=== PATIENT | female | born 1945 | race Caucasian/White ===

== ENCOUNTER 2017-02-22 14:05 | Emergency (ER) | payer MEDICARE, OTHER ==
[2017-02-22] MEDS ORDERED: DUONEB 0.5-3 MG/3 ml Neb IH ONE ×2 (14:26→14:39)
[2017-02-22] MEDS ORDERED: solu-MEDROL 125 MG IV ONE (14:26)
[2017-02-22 14:37] LABS: BASOPHIL % 0.3 % (0.0-0.4); Eosinophil % 1.9 % (0.00-5.0); Granulocytes % 70.7 % (36.0-66.0); Lymphocytes % 19.6 % (24.0-44.0); Mean Cell Volume 81.6 fl (78-100); Mean Platelet Volume 10.3 fl (6-9.5); Monocytes % 7.5 % (0.0-12.0); Platelet Count 280 K/mm3 (150-450); Red Blood Count 3.92 M/mm3 (4.1-5.4); Red Cell Distribution Width 15.7 % (11.5-14.0); White Blood Count 8.6 K/mm3 (4.0-10.5)
--- NOTE | 2017-02-22 14:37 | ERPHSYRPT ---
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 and on been on 2 rounds of antibotics and today was last day of steriod. Triage Nursing Assessment: pt alert, resp easy, chest clear. skin w/d pink. no edema noted, has tooth pulled on sunday Physician History: mild to mod shortness of breath for 3 weeks off and on, no fever, no injury, hx asthma, hx recent dental procedure, speech fluent, no stridor, no chest pain Timing/Duration: week(s) Activities at Onset: rest Severity of Dyspnea-Max: moderate Severity of Dyspnea-Current: mild Possible Cause: frequent episodes Allergies/Adverse Reactions: Penicillins Allergy (Verified 02/22/17 14:25) Home Medications: Albuterol 2.5 mg/3 ml Neb [Proventil 2.5 mg/3 ml Neb] 2.5 mg QID 02/22/17 [History] Biotin 1 mg DAILY 02/22/17 [History] Cholecalciferol (Vitamin D3) [Vitamin D3] 10,000 unit DAILY 02/22/17 [History] Estrogens, Conjugated [Premarin] 1.25 mg WEEKLY 02/22/17 [History] Insulin Glargine,Hum.rec.anlog [Tay Robledo] 40 units DAILY 02/22/17 [ History] Insulin Lispro [Humalog] 1 unit TID 02/22/17 [History] Magnesium Chloride 64 mg [Slow-Mag 64 MG] 1 tab DAILY 02/22/17 [History] Metformin HCl 500 mg [Glucophage 500 MG] 500 mg BID 02/22/17 [History] Metoclopramide HCl 10 mg [Reglan 10 MG] 10 mg QID 02/22/17 [History] Pantoprazole Sodium [Protonix] 40 mg DAILY 02/22/17 [History] Ramipril [Altace] 20 mg DAILY 02/22/17 [History] Hx Influenza Vaccination/Date Given: No Hx Pneumococcal Vaccination/Date Given: Yes - Review of Systems Constitutional: No Fever Eyes: No Symptoms Ears, Nose, & Throat: No Hoarse, No Stridor Respiratory: Wheezing Cardiac: Other (palpitations) Abdominal/Gastrointestinal: No Symptoms Musculoskeletal: No Symptoms Skin: No Symptoms, Skin Lesions Neurological: No Symptoms Psychological: No Symptoms - Past Medical History Neurological History: No Pertinent History Cardiac History: Hypertension Respiratory History: Other Endocrine Medical History: Diabetes Type II, Hypothyroidism Musculoskeletal History: Osteoarthritis, Rheumatoid Arthritis Other Medical History: seasonal allergies, RA - Past Surgical History Past Surgical History: No - Social History Smoking Status: Never smoker Exposure to second hand smoke: No Drug Use: none Patient Lives Alone: No - Female History Hx Last Menstrual Period: post - Nursing Vital Signs Nursing Vital Signs: Initial Vital Signs Temperature 97.0 F 02/22/17 14:13 Pulse Rate 95 H 02/22/17 14:13 Respiratory Rate 18 02/22/17 14:13 Blood Pressure 155/74 02/22/17 14:13 O2 Sat by Pulse Oximetry 96 02/22/17 14:13 Pain Scale Pain Intensity 0 - Physical Exam General Appearance: no apparent distress Eye Exam: PERRL/EOMI Ears, Nose, Throat Exam: No pharyngeal erythema Neck Exam: normal inspection, No meningismus Respiratory Exam: wheezing, No respiratory distress Cardiovascular/Chest Exam: irregular Abdominal/Gastrointestinal Exam: soft, No tenderness Extremity Exam: non-tender, normal range of motion Neurologic Exam: alert, oriented x 3, cooperative, normal mood/affect Skin Exam: normal color, warm, dry SpO2 Interpretation: normal SpO2: 98 - Course Nursing assessment & vital signs reviewed: Yes EKG Interpreted by Me: RATE (100, ventricular bigeminy, no stemi, similar to 2015 [place] waveforms) - Radiology Exams Chest X-ray Interpretation: Discussed w/ radiologist (no gross infil or failure) Ordered Tests: Active Orders 24 hr Category Date Time Status EKG-ER Only STAT Care 02/22/17 14:26 Active CHEST 1 VIEW (PORTABLE) Stat Exams 02/22/17 14:27 Completed CBC W DIFF Stat Lab 02/22/17 14:25 Completed CMP Stat Lab 02/22/17 14:25 Completed D-DIMER QUANTITATION Stat Lab 02/22/17 14:25 Completed NT PRO BNP Stat Lab 02/22/17 14:25 Completed PROTIME WITH INR Stat Lab 02/22/17 14:25 Completed TROPONIN Q3H Lab 02/22/17 14:25 Completed TROPONIN Q3H Lab 02/22/17 17:30 Ordered TROPONIN Q3H Lab 02/22/17 20:30 Ordered TROPONIN Q3H Lab 02/22/17 23:30 Ordered TROPONIN Q3H Lab 02/23/17 02:30 Ordered Respiratory Nebulizer STAT RT 02/22/17 14:30 Completed Medication Summary Discontinued Medications Generic Name Dose Route Start Last Admin Trade Name Freq PRN Reason Stop Dose Admin Albuterol/Ipratropium 3 ml 02/22/17 14:26 02/22/17 14:40 Duoneb 0.5-3 Mg/3 Ml Neb IH 02/22/17 14:27 3 ml STAT ONE Administration Albuterol/Ipratropium Confirm 02/22/17 14:39 Duoneb 0.5-3 Mg/3 Ml Neb Administered 02/22/17 14:40 Dose 3 ml IH .STK-MED ONE Aspirin 324 mg 02/22/17 16:16 Baby Aspirin 81 Mg Chew PO 02/22/17 16:17 STAT ONE Methylprednisolone Sodium Succinate 125 mg 02/22/17 14:26 02/22/17 15:08 Solu-Medrol 125 Mg IV 02/22/17 14:27 125 mg STAT ONE Administration Methylprednisolone Sodium Succinate Confirm 02/22/17 15:07 Solu-Medrol 125 Mg Administered 02/22/17 15:08 Dose 125 mg .ROUTE .STK-MED ONE Lab/Rad Data: Laboratory Result Diagrams 02/22/17 14:25 02/22/17 14:25 Laboratory Results 02/22/17 02/22/17 02/22/17 Range/Units 14:25 14:25 14:25 WBC (4.0-10.5) K/mm3 RBC (4.1-5.4) M/mm3 Hgb (12.0-16.0) gm/dl Hct (35-47) % MCV (78-100) fl MCH (26-32) pg MCHC (32-36) g/dl RDW (11.5-14.0) % Plt Count (150-450) K/mm3 MPV (6-9.5) fl Gran % (36.0-66.0) % Lymphocytes % (24.0-44.0) % Monocytes % (0.0-12.0) % Eosinophils % (0.00-5.0) % Basophils % (0.0-0.4) % Basophils # (0-0.4) INR 1.04 (0.8-3.0) D-Dimer 384 (0-500) ng/mL Sodium 142 (136-145) mEq/L Potassium 3.6 (3.5-5.1) mEq/L Chloride 103 (98-107) mEq/L Carbon Dioxide 26.5 (21-32) mEq/L Anion Gap 15.8 H (5-15) MEQ/L BUN 13 (9-20) mg/dL Creatinine 1.08 (0.55-1.30) mg/dl Estimated GFR 53 ML/MIN Glucose 94 (70-110) MG/DL Calcium 9.2 (8.5-10.1) mg/dL Total Bilirubin 0.40 (0.2-1.0) mg/dL AST 12 L (15-37) U/L ALT 33 (12-78) U/L Alkaline Phosphatase 62 (46-116) U/L Troponin I 0.073 H* (0.000-0.056) ng/ml NT-Pro-B Natriuret Pep 982 H (0-125) pg/ml Serum Total Protein 7.6 (6.4-8.2) gm/dL Albumin 4.0 (3.4-5.0) g/dL 02/22/17 Range/Units 14:25 WBC 8.6 (4.0-10.5) K/mm3 RBC 3.92 L (4.1-5.4) M/mm3 Hgb 9.4 L (12.0-16.0) gm/dl Hct 32.0 L (35-47) % MCV 81.6 (78-100) fl MCH 23.9 L (26-32) pg MCHC 29.4 L (32-36) g/dl RDW 15.7 H (11.5-14.0) % Plt Count 280 (150-450) K/mm3 MPV 10.3 H (6-9.5) fl Gran % 70.7 H (36.0-66.0) % Lymphocytes % 19.6 L (24.0-44.0) % Monocytes % 7.5 (0.0-12.0) % Eosinophils % 1.9 (0.00-5.0) % Basophils % 0.3 (0.0-0.4) % Basophils # 0.03 (0-0.4) INR (0.8-3.0) D-Dimer (0-500) ng/mL Sodium (136-145) mEq/L Potassium (3.5-5.1) mEq/L Chloride (98-107) mEq/L Carbon Dioxide (21-32) mEq/L Anion Gap (5-15) MEQ/L BUN (9-20) mg/dL Creatinine (0.55-1.30) mg/dl Estimated GFR ML/MIN Glucose (70-110) MG/DL Calcium (8.5-10.1) mg/dL Total Bilirubin (0.2-1.0) mg/dL AST (15-37) U/L ALT (12-78) U/L Alkaline Phosphatase (46-116) U/L Troponin I (0.000-0.056) ng/ml NT-Pro-B Natriuret Pep (0-125) pg/ml Serum Total Protein (6.4-8.2) gm/dL Albumin (3.4-5.0) g/dL - Progress Progress: improved Air Movement: good Discussed with : Other (Kezia Lubin and Nathaniel accept transfer to [facility] room 328) - Departure Time of Disposition: 16:06 Departure Disposition: Transfer Clinical Impression: Bigeminal rhythm, Elevated troponin COPD (chronic obstructive pulmonary disease) Qualifiers: COPD type: unspecified COPD Qualified Code(s): J44.9 - Chronic obstructive pulmonary disease, unspecified Condition: Stable Critical Care Time: No Referrals: PERLA HOPSON NP [NON-STAFF PHY W/O PRIVILEGES] - Instructions: Chronic Obstructive Pulmonary Disease
[2017-02-22 14:40] LABS: Mean Corpuscular Hemoglobin 23.9 pg (26-32)
[2017-02-22 14:49] LABS: INR 1.04 (0.8-3.0); PROTIME 11.6 SECONDS (9.95-12.35)
[2017-02-22] MEDS ORDERED: solu-MEDROL 125 MG ONE (15:07)
[2017-02-22 15:14] LABS: ANION GAP 15.8 MEQ/L (5-15); BILIRUBIN,TOTAL 0.4 mg/dL (0.2-1.0); Carbon Dioxide 26.5 mEq/L (21-32); Potassium 3.6 mEq/L (3.5-5.1); Total Protein 7.6 gm/dL (6.4-8.2)
--- NOTE | 2017-02-22 15:25 | XRAY ---
Exam: AP upright portable chest film from 1442 hrs. on 02/22/2017. Comparison: Two-view chest from 02/12/2017. Indication: Shortness of breath. Findings: The patient is rotated slightly to the right. EKG leads are seen in place. The heart size appears within normal limits for this AP portable technique. No significant vascular congestion or pleural effusion is seen. No pneumothorax is evident. No definite air space infiltrates are seen. Some costochondral calcification is seen adjacent to the anterior margin of the lower ribs, particularly on the right. No acute osseous process is seen. Impression: 1. I see no findings of acute heart failure or pulmonary edema. No infiltrates to suggest focal pneumonia are seen. 2. No other acute cardiopulmonary process is seen.
[2017-02-22] MEDS ORDERED: BABY ASPIRIN 81 MG CHEW PO ONE (16:16)
[2017-02-22] MEDS ORDERED: BABY ASPIRIN 81 MG CHEW ONE (16:37)
[2017-02-22 17:43] VITALS: BP 148/72; PULSE 74; O2SAT 97
== END 2017-02-22 17:43 | disposition short-term general hospital (02) ==
LOC: ED 14:05
DX: J44.9 Chronic obstructive pulmonary disease, unspecified (principal); R00.8 Other abnormalities of heart beat; R79.89 Other specified abnormal findings of blood chemistry
CPT/HCPCS: 36415; 71010; 80053; 83880; 84484; 85025; 85379; 85610; 93005; 94640; 96374; 99284; J2930; A9270-GY

== ENCOUNTER 2017-03-24 22:28 | Emergency (ER) | payer MEDICARE, OTHER ==
--- NOTE | 2017-03-24 22:37 | ERPHSYRPT ---
- History of Present Illness Time Seen by Provider: 03/24/17 22:31 Source: patient Exam Limitations: no limitations Physician History: FOR THE PAST 22.5 HOURS PT HAS HAD SHORTNESS OF AIR, DIAPHORESIS AND HEADACHE. PT DENIES CHEST PAIN, FEVER, VOMITING. PT STATES SHE HAD AN EGD ABOUT 1 MONTH AGO WHICH SHOWED SHE HAD A FUNGUS IN HER STOMACH. PT HAS ALSO HAD URINARY URGENCY FOR THE PAST MONTH. Allergies/Adverse Reactions: Penicillins Allergy (Verified 02/22/17 14:25) Home Medications: Albuterol 2.5 mg/3 ml Neb [Proventil 2.5 mg/3 ml Neb] 2.5 mg QID 02/22/17 [History] Biotin 1 mg DAILY 02/22/17 [History] Cholecalciferol (Vitamin D3) [Vitamin D3] 10,000 unit DAILY 02/22/17 [History] Estrogens, Conjugated [Premarin] 1.25 mg WEEKLY 02/22/17 [History] Insulin Glargine,Hum.rec.anlog [Toujeo Solostar] 40 units DAILY 02/22/17 [ History] Insulin Lispro [Humalog] 1 unit TID 02/22/17 [History] Magnesium Chloride 64 mg [Slow-Mag 64 MG] 1 tab DAILY 02/22/17 [History] Metformin HCl 500 mg [Glucophage 500 MG] 500 mg BID 02/22/17 [History] Metoclopramide HCl 10 mg [Reglan 10 MG] 10 mg QID 02/22/17 [History] Pantoprazole Sodium [Protonix] 40 mg DAILY 02/22/17 [History] Carvedilol 3.125 mg [Coreg 3.125 MG] 3.125 mg PO BID 03/03/17 [History] Hx Influenza Vaccination/Date Given: No Hx Pneumococcal Vaccination/Date Given: Yes - Review of Systems Respiratory: Dyspnea Cardiac: No Chest Pain Abdominal/Gastrointestinal: No Vomiting Genitourinary Symptoms: Urgency Neurological: Headache Endocrine: Excessive Sweating All Other Systems: Reviewed and Negative - Past Medical History Pertinent Past Medical History: Yes Neurological History: No Pertinent History Cardiac History: Hypertension Respiratory History: Other Endocrine Medical History: Diabetes Type II, Hypothyroidism Musculoskeletal History: Osteoarthritis, Rheumatoid Arthritis Other Medical History: seasonal allergies, RA - Past Surgical History Past Surgical History: Yes Gastrointestinal: Cholecystectomy Female Surgical History: Hysterectomy - Social History Smoking Status: Never smoker Exposure to second hand smoke: No Drug Use: none Patient Lives Alone: No - Nursing Vital Signs Nursing Vital Signs: Initial Vital Signs Temperature 98.5 F 03/24/17 22:45 Pulse Rate 80 03/24/17 22:45 Respiratory Rate 20 03/24/17 22:45 Blood Pressure 140/74 03/24/17 22:45 O2 Sat by Pulse Oximetry 99 03/24/17 22:45 Pain Scale Pain Intensity 0 - Physical Exam General Appearance: alert Eye Exam: PERRL/EOMI Ears, Nose, Throat Exam: moist mucous membranes Neck Exam: normal inspection Respiratory Exam: lungs clear Cardiovascular Exam: normal heart sounds Gastrointestinal/Abdomen Exam: soft, normal bowel sounds Back Exam: normal range of motion Extremity Exam: normal inspection Neurologic Exam: alert, cooperative Skin Exam: warm, dry - Course Nursing assessment & vital signs reviewed: Yes EKG Interpreted by Me: RATE (85), Sinus Rhythm, NORMAL AXIS, NORMAL INTERVALS - Radiology Exams Chest X-ray Interpretation: Interpreted by me (MILD CONGESTIVE CHANGES) Ordered Tests: Active Orders 24 hr Category Date Time Status Calibration Technician STAT Care 03/24/17 22:39 Active EKG-ER Only STAT Care 03/24/17 22:37 Active Oxygen-ED Only NASAL CANNULA 2 lpm Care 03/24/17 22:37 Active Pulse Oximetry (ED) STAT Care 03/24/17 22:37 Active CHEST 2 VIEWS (PA AND LAT) Stat Exams 03/24/17 22:38 Taken AMYLASE Stat Lab 03/24/17 22:40 Completed ARTERIAL BLOOD GASES Urgent Lab 03/24/17 23:06 Completed CBC W DIFF Stat Lab 03/24/17 22:40 Completed CMP Stat Lab 03/24/17 22:40 Completed LIPASE Stat Lab 03/24/17 22:40 Completed MAGNESIUM Stat Lab 03/24/17 22:40 Completed NT PRO BNP Stat Lab 03/24/17 22:40 Completed PROTIME WITH INR Stat Lab 03/24/17 22:40 Completed PTT Stat Lab 03/24/17 22:40 Completed TROPONIN Q3H Lab 03/24/17 22:40 Completed TROPONIN Q3H Lab 03/25/17 01:45 Ordered TROPONIN Q3H Lab 03/25/17 04:45 Ordered TROPONIN Q3H Lab 03/25/17 07:45 Ordered TROPONIN Q3H Lab 03/25/17 10:45 Ordered UA W/RFX UR CULTURE Stat Lab 03/24/17 23:40 Completed Urine Triage Profile Stat Lab 03/24/17 23:40 Completed Medication Summary Generic Name Dose Route Start Last Admin Trade Name Hakeem PRN Reason Stop Dose Admin Sodium Chloride 1,000 mls @ 100 mls/hr 03/24/17 22:45 03/24/17 22:55 Sodium Chloride 0.9% 1000 Ml IV 04/23/17 22:44 100 mls/hr .Q10H KIMMY Administration Discontinued Medications Generic Name Dose Route Start Last Admin Trade Name Richieq PRN Reason Stop Dose Admin Al Hydrox/Mg Hydrox/Simethicone Confirm 03/24/17 23:00 Maalox Es 30 Ml Unit Dose Administered 03/24/17 23:01 Dose 30 ml .ROUTE .STK-MED ONE Furosemide 20 mg 03/24/17 23:52 03/25/17 00:11 Lasix 40 Mg/4 Ml IV 03/24/17 23:53 20 mg STAT ONE Administration Furosemide Confirm 03/25/17 00:11 Lasix 40 Mg/4 Ml Administered 03/25/17 00:12 Dose 40 mg .ROUTE .STK-MED ONE Lidocaine HCl Confirm 03/24/17 23:00 Xylocaine Hcl Viscous * Administered 03/24/17 23:01 Dose 1 ml .ROUTE .STK-MED ONE Magnesium Hydroxide 45 ml 03/24/17 22:57 03/24/17 23:01 Gi Cocktail 45 Ml (Maalox/Lidocaine) PO 03/24/17 22:58 45 ml STAT ONE Administration Lab/Rad Data: Laboratory Result Diagrams 03/24/17 22:40 03/24/17 22:40 Laboratory Results 03/24/17 03/24/17 03/24/17 Range/Units 23:40 23:40 23:06 WBC (4.0-10.5) K/mm3 RBC (4.1-5.4) M/mm3 Hgb (12.0-16.0) gm/dl Hct (35-47) % MCV (78-100) fl MCH (26-32) pg MCHC (32-36) g/dl RDW (11.5-14.0) % Plt Count (150-450) K/mm3 MPV (6-9.5) fl Gran % (36.0-66.0) % Lymphocytes % (24.0-44.0) % Monocytes % (0.0-12.0) % Eosinophils % (0.00-5.0) % Basophils % (0.0-0.4) % Basophils # (0-0.4) INR (0.8-3.0) APTT (25.3-37.0) SECONDS Puncture Site RIGHT RADIAL pCO2 34 L (35-45) mmHg pO2 110 H (75-100) mmHg Base Excess -0.8 (-2.0-2.0) O2 Saturation 94.7 (94-100) g/dF ABG pH 7.44 (7.35-7.45) ABG HCO3 23.1 (22-28) ABG O2 Sat (Measured) 98.4 (95-100) % Mateo Test YES A-a Gradient 47 a/A Ratio 0.70 Hemoglobin 8.6 Carboxyhemoglobin 2.1 (0.0-6.9) % THgb Methemoglobin 1.7 H (1.4-1.5) % Temperature 37.0 C POC O2 Flow Rate 28 % Sodium (136-145) mEq/L Potassium 3.5 (3.5-5.1) mEq/L Chloride (98-107) mEq/L Carbon Dioxide (21-32) mEq/L Anion Gap (5-15) MEQ/L BUN (9-20) mg/dL Creatinine (0.55-1.30) mg/dl Estimated GFR ML/MIN Glucose (70-110) MG/DL Calcium (8.5-10.1) mg/dL Magnesium (1.8-2.4) mg/dL Total Bilirubin (0.2-1.0) mg/dL AST (15-37) U/L ALT (12-78) U/L Alkaline Phosphatase (46-116) U/L Troponin I (0.000-0.056) ng/ml NT-Pro-B Natriuret Pep (0-125) pg/ml Serum Total Protein (6.4-8.2) gm/dL Albumin (3.4-5.0) g/dL Amylase (25-115) U/L Lipase (73-393) U/L Ur Collection Type CLEAN CATCH Urine Color YELLOW (YELLOW) Urine Appearance CLEAR (CLEAR) Urine pH 5.0 (5-6) Ur Specific [place] 1.025 (1.005-1.025) Urine Protein NEGATIVE (Negative) Urine Ketones NEGATIVE (NEGATIVE) Urine Blood NEGATIVE (0-5) Chriss/ul Urine Nitrite NEGATIVE (NEGATIVE) Urine Bilirubin NEGATIVE (NEGATIVE) Urine Urobilinogen NORMAL (0-1) mg/dL Ur Leukocyte Esterase NEGATIVE (NEGATIVE) Urine Culture Reflexed NO (NO) Urine Glucose NEGATIVE (NEGATIVE) mg/dL Urine Opiates Level POS. (NEGATIVE) Ur Methadone NEG. (NEGATIVE) Urine Barbiturates NEG. (NEGATIVE) Ur Phencyclidine (PCP) NEG. (NEGATIVE) Urine Amphetamine NEG. (NEGATIVE) U Benzodiazepine Level NEG. (NEGATIVE) Urine Cocaine NEG. (NEGATIVE) Urine Marijuana (THC) NEG. (NEGATIVE) Specimen Received 03/24/17 [id number] 03/24/17 03/24/17 03/24/17 Range/Units 22:40 22:40 22:40 WBC (4.0-10.5) K/mm3 RBC (4.1-5.4) M/mm3 Hgb (12.0-16.0) gm/dl Hct (35-47) % MCV (78-100) fl MCH (26-32) pg MCHC (32-36) g/dl RDW (11.5-14.0) % Plt Count (150-450) K/mm3 MPV (6-9.5) fl Gran % (36.0-66.0) % Lymphocytes % (24.0-44.0) % Monocytes % (0.0-12.0) % Eosinophils % (0.00-5.0) % Basophils % (0.0-0.4) % Basophils # (0-0.4) INR 1.10 (0.8-3.0) APTT 31.1 (25.3-37.0) SECONDS Puncture Site pCO2 (35-45) mmHg pO2 (75-100) mmHg Base Excess (-2.0-2.0) O2 Saturation (94-100) g/dF ABG pH (7.35-7.45) ABG HCO3 (22-28) ABG O2 Sat (Measured) (95-100) % Mateo Test A-a Gradient a/A Ratio Hemoglobin Carboxyhemoglobin (0.0-6.9) % THgb Methemoglobin (1.4-1.5) % Temperature C POC O2 Flow Rate % Sodium 141 (136-145) mEq/L Potassium 3.7 (3.5-5.1) mEq/L Chloride 105 (98-107) mEq/L Carbon Dioxide 23.2 (21-32) mEq/L Anion Gap 16.2 H (5-15) MEQ/L BUN 12 (9-20) mg/dL Creatinine 1.01 (0.55-1.30) mg/dl Estimated GFR 58 ML/MIN Glucose 147 H (70-110) MG/DL Calcium 8.9 (8.5-10.1) mg/dL Magnesium 1.8 (1.8-2.4) mg/dL Total Bilirubin 0.50 (0.2-1.0) mg/dL AST 20 (15-37) U/L ALT 22 (12-78) U/L Alkaline Phosphatase 66 (46-116) U/L Troponin I 0.052 (0.000-0.056) ng/ml NT-Pro-B Natriuret Pep 1401 H (0-125) pg/ml Serum Total Protein 7.2 (6.4-8.2) gm/dL Albumin 3.7 (3.4-5.0) g/dL Amylase 43 (25-115) U/L Lipase 264 (73-393) U/L Ur Collection Type Urine Color (YELLOW) Urine Appearance (CLEAR) Urine pH (5-6) Ur Specific [place] (1.005-1.025) Urine Protein (Negative) Urine Ketones (NEGATIVE) Urine Blood (0-5) Chriss/ul Urine Nitrite (NEGATIVE) Urine Bilirubin (NEGATIVE) Urine Urobilinogen (0-1) mg/dL Ur Leukocyte Esterase (NEGATIVE) Urine Culture Reflexed (NO) Urine Glucose (NEGATIVE) mg/dL Urine Opiates Level (NEGATIVE) Ur Methadone (NEGATIVE) Urine Barbiturates (NEGATIVE) Ur Phencyclidine (PCP) (NEGATIVE) Urine Amphetamine (NEGATIVE) U Benzodiazepine Level (NEGATIVE) Urine Cocaine (NEGATIVE) Urine Marijuana (THC) (NEGATIVE) Specimen Received 03/24/17 Range/Units 22:40 WBC 8.3 (4.0-10.5) K/mm3 RBC 3.83 L (4.1-5.4) M/mm3 Hgb 8.9 L (12.0-16.0) gm/dl Hct 30.4 L (35-47) % MCV 79.4 (78-100) fl MCH 23.2 L (26-32) pg MCHC 29.3 L (32-36) g/dl RDW 16.1 H (11.5-14.0) % Plt Count 279 (150-450) K/mm3 MPV 9.6 H (6-9.5) fl Gran % 68.9 H (36.0-66.0) % Lymphocytes % 21.2 L (24.0-44.0) % Monocytes % 7.3 (0.0-12.0) % Eosinophils % 2.2 (0.00-5.0) % Basophils % 0.4 (0.0-0.4) % Basophils # 0.03 (0-0.4) INR (0.8-3.0) APTT (25.3-37.0) SECONDS Puncture Site pCO2 (35-45) mmHg pO2 (75-100) mmHg Base Excess (-2.0-2.0) O2 Saturation (94-100) g/dF ABG pH (7.35-7.45) ABG HCO3 (22-28) ABG O2 Sat (Measured) (95-100) % Mateo Test A-a Gradient a/A Ratio Hemoglobin Carboxyhemoglobin (0.0-6.9) % THgb Methemoglobin (1.4-1.5) % Temperature C POC O2 Flow Rate % Sodium (136-145) mEq/L Potassium (3.5-5.1) mEq/L Chloride (98-107) mEq/L Carbon Dioxide (21-32) mEq/L Anion Gap (5-15) MEQ/L BUN (9-20) mg/dL Creatinine (0.55-1.30) mg/dl Estimated GFR ML/MIN Glucose (70-110) MG/DL Calcium (8.5-10.1) mg/dL Magnesium (1.8-2.4) mg/dL Total Bilirubin (0.2-1.0) mg/dL AST (15-37) U/L ALT (12-78) U/L Alkaline Phosphatase (46-116) U/L Troponin I (0.000-0.056) ng/ml NT-Pro-B Natriuret Pep (0-125) pg/ml Serum Total Protein (6.4-8.2) gm/dL Albumin (3.4-5.0) g/dL Amylase (25-115) U/L Lipase (73-393) U/L Ur Collection Type Urine Color (YELLOW) Urine Appearance (CLEAR) Urine pH (5-6) Ur Specific [place] (1.005-1.025) Urine Protein (Negative) Urine Ketones (NEGATIVE) Urine Blood (0-5) Chriss/ul Urine Nitrite (NEGATIVE) Urine Bilirubin (NEGATIVE) Urine Urobilinogen (0-1) mg/dL Ur Leukocyte Esterase (NEGATIVE) Urine Culture Reflexed (NO) Urine Glucose (NEGATIVE) mg/dL Urine Opiates Level (NEGATIVE) Ur Methadone (NEGATIVE) Urine Barbiturates (NEGATIVE) Ur Phencyclidine (PCP) (NEGATIVE) Urine Amphetamine (NEGATIVE) U Benzodiazepine Level (NEGATIVE) Urine Cocaine (NEGATIVE) Urine Marijuana (THC) (NEGATIVE) Specimen Received - Progress Discussed with Dr.: Other (SPOKE WITH DR REVELES(COVERING FOR DR LAKHANI)([id number]) WHO ACCEPTED PT FOR TRANSFER TO [facility] VIA AMBULANCE A DIRECT ADMISSION. SPOKE WITH DR ACUNA(ER DR)([id number]) WHO ACCEPTED PT FOR TRANSFER TO [facility] ER.) - Departure Time of Disposition: 01:01 Departure Disposition: Transfer ([facility]) Clinical Impression: DYSPNEA, CHF, ELEVATING TROPONIN I, ANEMIA, HTN Condition: Stable Critical Care Time: No Referrals: JENNIFER LAKHANI MD [Primary Care Provider] -
[2017-03-24] MEDS ORDERED: Sodium Chloride 0.9% 1000 ML 1,000 ML IV SCH (22:45)
[2017-03-24 22:50] LABS: BASOPHIL % 0.4 % (0.0-0.4); Eosinophil % 2.2 % (0.00-5.0); Granulocytes % 68.9 % (36.0-66.0); Lymphocytes % 21.2 % (24.0-44.0); Mean Cell Volume 79.4 fl (78-100); Mean Corpuscular Hemoglobin 23.2 pg (26-32); Mean Platelet Volume 9.6 fl (6-9.5); Monocytes % 7.3 % (0.0-12.0); Platelet Count 279 K/mm3 (150-450); Red Blood Count 3.83 M/mm3 (4.1-5.4); Red Cell Distribution Width 16.1 % (11.5-14.0); White Blood Count 8.3 K/mm3 (4.0-10.5)
[2017-03-24] MEDS ORDERED: Sodium Chloride 0.9% 1000 ML 1,000 ML ONE (22:54)
[2017-03-24] MEDS ORDERED: GI COCKTAIL 45 ML (Maalox/Lidocaine) PO ONE (22:57)
[2017-03-24] MEDS ORDERED: MAALOX ES 30 ML UNIT DOSE ONE (23:00)
[2017-03-24] MEDS ORDERED: XYLOCAINE HCl Viscous ONE (23:00)
[2017-03-24 23:03] LABS: INR 1.1 (0.8-3.0); PROTIME 12.2 SECONDS (9.95-12.35)
[2017-03-24 23:05] LABS: PTT 31.1 SECONDS (25.3-37.0)
[2017-03-24 23:14] LABS: A-aADO2 47; ARTERIAL BLD GAS O2 SATURATION 98.4 % (95-100); ARTERIAL BLOOD GAS BASE EXCESS -0.8 (-2.0-2.0); ARTERIAL BLOOD GAS FIO2 28 %; ARTERIAL BLOOD GAS PO2 110 mmHg (75-100); ARTERIAL BLOOD GAS pH 7.44 (7.35-7.45)
[2017-03-24 23:15] LABS: ALLEN TEST OK? YES
[2017-03-24 23:19] LABS: ALBUMIN 3.7 g/dL (3.4-5.0); ANION GAP 16.2 MEQ/L (5-15); BILIRUBIN,TOTAL 0.5 mg/dL (0.2-1.0); Carbon Dioxide 23.2 mEq/L (21-32); MAGNESIUM 1.8 mg/dL (1.8-2.4); Potassium 3.7 mEq/L (3.5-5.1); Total Protein 7.2 gm/dL (6.4-8.2)
[2017-03-24] MEDS ORDERED: Lasix 40 MG/4 ML IV ONE (23:52)
[2017-03-25 00:05] LABS: ADD URINE CULTURE? NO (NO); Bilirubin NEGATIVE (NEGATIVE); Blood NEGATIVE Ery/ul (0-5); COMPLETE URINE MICROSCOPIC? NO; Collection Type CLEAN CATCH; Glucose NEGATIVE (NEGATIVE); Leukocyte Esterase NEGATIVE (NEGATIVE)
[2017-03-25] MEDS ORDERED: Lasix 40 MG/4 ML ONE (00:11)
[2017-03-25 02:00] VITALS: BP 137/59; PULSE 86; O2SAT 99
--- NOTE | 2017-03-25 08:11 | XRAY ---
Indication: Short of breath. Comparison: March 03, 2017. PA/lateral chest demonstrates new mild interstitial edema and tiny bibasilar effusions. No focal infiltrate or consolidation. Heart is not enlarged.
== END 2017-03-25 02:00 | disposition short-term general hospital (02) ==
LOC: ED 22:28
DX: R06.00 Dyspnea, unspecified (principal); I50.9 Heart failure, unspecified; R79.89 Other specified abnormal findings of blood chemistry; D64.9 Anemia, unspecified; I10 Essential (primary) hypertension; R06.02 Shortness of breath; R61 Generalized hyperhidrosis; R51 Headache; E11.9 Type 2 diabetes mellitus without complications; E03.9 Hypothyroidism, unspecified; Z79.899 Other long term (current) drug therapy; Z79.4 Long term (current) use of insulin; Z79.84 Long term (current) use of oral hypoglycemic drugs
CPT/HCPCS: 36000; 36415; 36600; 71020; 80053; 80307; 81002; 82150; 82375; 82803; 82962; 83690; 83735; 83880; 84484; 85025; 85610; 85730; 93005; 93041; 96360; 96374; 99285; J1940; A9270-GY

== ENCOUNTER 2019-02-06 15:51 | Inpatient (IN) | payer MEDICARE, OTHER ==
[2019-02-06] MEDS ORDERED: celeBREX 100 MG PO PRN (17:20)
[2019-02-06] MEDS ORDERED: NON-FORMULARY ITEM (Semaglutide [Ozempic] 1 MG) SQ SCH (17:30)
[2019-02-06] MEDS ORDERED: MEDICATION INTERVENTION MC SCH ×3 (17:45→18:15)
[2019-02-06 17:52] LABS: ANION GAP 16.7 MEQ/L (5-15); Calcium 8.9 mg/dL (8.4-10.2); Creatinine 1 1.31 mg/dL (0.52-1.04)
[2019-02-06] MEDS: NovoLOG Insulin SQ SCH (19:05)
[2019-02-06] MEDS: Colace 100 MG PO SCH (21:46)
[2019-02-06] MEDS: ZOCOR 20MG PO SCH (21:46)
[2019-02-06] MEDS: Klor Con 10 MEQ PO SCH (21:47)
[2019-02-06] MEDS: ENTRESTO 49 MG-51 MG TABLET PO SCH (21:47)
[2019-02-06] MEDS: Norco 10/325 MG Tablet PO PRN (21:48)
[2019-02-06] MEDS ORDERED: NON-FORMULARY ITEM (Rosuvastatin Calcium [Crestor] 20 MG) PO SCH (22:00)
[2019-02-06] MEDS ORDERED: NON-FORMULARY ITEM (Insulin Lispro 18 UNIT) SQ SCH (22:00)
[2019-02-06] MEDS ORDERED: NON-FORMULARY ITEM (Sacubitril/Valsartan [Entresto 24 Mg-26 Mg Tablet] 1 EACH) PO SCH (22:00)
[2019-02-06] MEDS ORDERED: LIOTHYRONINE SODIUM PO SCH (22:00)
[2019-02-06] MEDS: Ecotrin 325 MG PO SCH (22:07)
[2019-02-07] MEDS: NovoLOG Insulin SQ SCH ×3 (07:46→17:29)
--- NOTE | 2019-02-07 09:04 | PCM.NOTE ---
Date and Time: 02/07/19900 Subjective Assessment: patient here for rehab s/p left total knee arthroplasty, she is able to ambulate and overall doing well. pain is controlled, was on flexeril prior to coming here and was very helpful. thinks she will want to discharge over the weekend as her functional status is much better than she expected. Objective Exam General Appearance: no apparent distress, obese Neurologic Exam: alert, oriented x 3 Respiratory Exam: normal breath sounds, lungs clear, No respiratory distress Cardiovascular Exam: regular rate/rhythm, normal heart sounds Gastrointestinal/Abdomen Exam: soft, No tenderness, No mass Extremity Exam: other (dressing c/d/i, no surrounding erythema or warmth, mild swelling. good rom) OBJECTIVE DATA Vital Signs: Vital Signs - 24 hr Temp Pulse Resp BP BP Pulse Ox 02/06/19 20:00 99.0 F 81 17 112/59 92 L 02/06/19 17:10 98.7 F 77 20 132/58 92 L 02/06/19 16:39 98.7 F 77 20 132/58 Pain Assessment - Last Documented Pain Intensity 0 Pain Scale Used [facility] Intake and Output: Intake & Output 02/04/19 02/05/19 02/06/19 02/07/19 11:59 11:59 11:59 11:59 Intake Total 360 Balance 360 Weight 90.6 kg Lab Results: Accuchecks Date 02/07/19 Date 02/06/19 Time 07:30 Time 21:30 Accucheck Value: 181 Accucheck Value: 209 Lab Results-Last 24 Hours 02/06/19 Range/Units 17:30 Sodium 137 (137-145) mmol/L Potassium 4.0 (3.5-5.1) mmol/L Chloride 96 L (98-107) mmol/L Carbon Dioxide 29 (22-30) mmol/L Anion Gap 16.7 H (5-15) MEQ/L BUN 20 H (7-17) mg/dL Creatinine 1.31 H (0.52-1.04) mg/dL Estimated GFR 42.5 ML/MIN Glucose 181 H (74-106) mg/dL Calcium 8.9 (8.4-10.2) mg/dL Assessment/Plan (1) Total knee replacement status Current Visit: Yes Status: Acute Assessment & Plan: likely home over the weekend, doing quite well Code(s): Z96.659 - PRESENCE OF UNSPECIFIED ARTIFICIAL KNEE JOINT (2) Diabetes mellitus Current Visit: Yes Status: Acute Assessment & Plan: home meds ordered Code(s): E11.9 - TYPE 2 DIABETES MELLITUS WITHOUT COMPLICATIONS (3) Hypertension Current Visit: Yes Status: Acute Assessment & Plan: stable, home meds Code(s): I10 - ESSENTIAL (PRIMARY) HYPERTENSION
[2019-02-07] MEDS: Cyclobenzaprine 10 MG PO PRN ×2 (09:45→18:32)
[2019-02-07] MEDS ORDERED: Ecotrin 325 MG PO SCH (10:00)
[2019-02-07] MEDS ORDERED: INSULIN GLARGINE HUM REC ANLOG 52 UNIT SQ SCH (10:00)
[2019-02-07] MEDS ORDERED: FERROUS SULFATE 140 MG PO SCH (10:00)
[2019-02-07] MEDS ORDERED: NON-FORMULARY ITEM (Cetirizine Hcl [Zyrtec] 10 MG) PO SCH (10:00)
[2019-02-07] MEDS ORDERED: Aplisol ID ONE (10:00)
[2019-02-07] MEDS ORDERED: BIOTIN 5000 MCG SL SCH (10:00)
[2019-02-07] MEDS ORDERED: NON-FORMULARY ITEM (Cyanocobalamin/Folic Acid [Vitamin B12-Folic Acid Tablet] 1 EACH) PO SCH (10:00)
[2019-02-07] MEDS: CLARITIN 10 MG PO SCH (10:05)
[2019-02-07] MEDS: FERREX 150 PO SCH (10:05)
[2019-02-07] MEDS: ENTRESTO 49 MG-51 MG TABLET PO SCH ×2 (10:05→21:59)
[2019-02-07] MEDS: Lasix 40 MG PO SCH (10:05)
[2019-02-07] MEDS: FOLTX (FOLBIC) PO SCH (10:05)
[2019-02-07] MEDS: Klor Con 10 MEQ PO SCH ×2 (10:05→22:00)
[2019-02-07] MEDS: Ecotrin 325 MG PO SCH ×2 (10:05→21:59)
[2019-02-07] MEDS: Toprol Xl 50 MG PO SCH (10:05)
[2019-02-07] MEDS: Protonix 40MG Tablet PO SCH (10:05)
[2019-02-07] MEDS: SYNTHROID 88 MCG PO SCH (10:06)
[2019-02-07] MEDS: Lantus Insulin SQ SCH (10:06)
[2019-02-07] MEDS: Colace 100 MG PO SCH ×2 (10:07→22:02)
[2019-02-07] MEDS: Norco 10/325 MG Tablet PO PRN ×2 (13:14→19:53)
[2019-02-07] MEDS ORDERED: INSULIN LISPRO 22 UNIT SQ SCH (17:00)
[2019-02-07] MEDS: ZOCOR 20MG PO SCH (22:00)
[2019-02-08] MEDS: Cyclobenzaprine 10 MG PO PRN ×2 (02:50→12:47)
[2019-02-08 07:40] VITALS: BP 110/53; PULSE 86; O2SAT 96
[2019-02-08] MEDS: Norco 10/325 MG Tablet PO PRN ×2 (08:13→12:47)
[2019-02-08] MEDS: Protonix 40MG Tablet PO SCH (09:09)
[2019-02-08] MEDS: Klor Con 10 MEQ PO SCH (09:09)
[2019-02-08] MEDS: NovoLOG Insulin SQ SCH ×2 (09:09→12:57)
[2019-02-08] MEDS: Ecotrin 325 MG PO SCH (09:09)
[2019-02-08] MEDS: FERREX 150 PO SCH (09:10)
[2019-02-08] MEDS: Toprol Xl 50 MG PO SCH (09:10)
[2019-02-08] MEDS: Lantus Insulin SQ SCH (09:10)
[2019-02-08] MEDS: ENTRESTO 49 MG-51 MG TABLET PO SCH (09:11)
[2019-02-08] MEDS: FOLTX (FOLBIC) PO SCH (09:11)
[2019-02-08] MEDS: Colace 100 MG PO SCH (09:14)
[2019-02-08] MEDS: SYNTHROID 88 MCG PO SCH (09:18)
[2019-02-08] MEDS: CLARITIN 10 MG PO SCH (09:18)
[2019-02-08] MEDS: Lasix 40 MG PO SCH (09:18)
--- NOTE | 2019-02-08 14:05 | PCM.DS ---
Discharge Summary Date of Admission: 02/06/19 16:24 Admitting Physician: YODIT DIAZ Primary Care Provider: YODIT DIAZ Allergies Allergies Penicillins Allergy (Verified 02/22/17 14:25) Hospital Summary - Hospital Course Hospital Course: Pt is a 73 yo female pt of Dr. Diaz with COPD, HTN, and DM who was admitted to [facility] for swing bed following total knee replacement surgery. She had therapy at for several days then was to have therapy here. She was admitted night (2d ago), has had therapy and is getting around great, feeling really well, and would like to go home today. At home is her , and her daughter and son live nearby. - Vitals & Intake/Output Vital Signs: Vital Signs Temperature 98 F 02/08/19 07:39 Pulse Rate 86 02/08/19 07:39 Respiratory Rate 20 02/08/19 07:39 Blood Pressure 110/53 02/08/19 07:39 O2 Sat by Pulse Oximetry 96 02/08/19 07:39 Intake & Output: Intake & Output 02/06/19 02/07/19 02/08/19 02/09/19 11:59 11:59 11:59 11:59 Intake Total 360 700 Balance 360 700 Weight 90.6 kg 90.6 kg - Lab Result Diagrams: 02/06/19 17:30 Lab Results-Last 24 Hrs: Accuchecks Date 02/08/19 Date 02/08/19 Date 02/07/19 Time 11:30 Time 07:30 Time 16:30 Accucheck Value: 130 Accucheck Value: 107 Accucheck Value: 268 Micro Results-Entire Visit: Accuchecks Date 02/08/19 Date 02/08/19 Date 02/07/19 Time 11:30 Time 07:30 Time 16:30 Accucheck Value: 130 Accucheck Value: 107 Accucheck Value: 268 - Procedures and Test Procedures and Tests throughout Hospitalization: Therapy Orders & Screens 02/06/19 16:46 PT Eval & Treat ( Order) ROUTINE Reason for Eval:: reconditioning following left total knee arthroplasty Diagnosis: deconditioning rt left tka Discharge Exam General Appearance: no apparent distress, alert Neurologic Exam: oriented x 3, cooperative Eye Exam: eyes nml inspection Ears, Nose, Throat Exam: moist mucous membranes Respiratory Exam: normal breath sounds, lungs clear, No crackles/rales, No rhonchi, No wheezing Cardiovascular Exam: regular rate/rhythm, normal heart sounds, No murmur Gastrointestinal/Abdomen Exam: soft, normal bowel sounds, No tenderness, No distention, No mass, No guarding, No rebound Extremity Exam: other (LLE knee with dressing in place, no erytehma, no edema.) Skin Exam: normal color, warm, dry, No rash Final Diagnosis/Problem List - Final Discharge Diagnosis/Problem (1) Diabetes mellitus Current Visit: Yes Status: Acute Code(s): E11.9 - TYPE 2 DIABETES MELLITUS WITHOUT COMPLICATIONS (2) Hypertension Current Visit: Yes Status: Acute Code(s): I10 - ESSENTIAL (PRIMARY) HYPERTENSION (3) Total knee replacement status Current Visit: Yes Status: Acute Code(s): Z96.659 - PRESENCE OF UNSPECIFIED ARTIFICIAL KNEE JOINT (4) COPD (chronic obstructive pulmonary disease) Current Visit: No Status: Acute - Discharge Disposition: Home, Self-Care Condition: Stable Prescriptions: New Cyclobenzaprine HCl 10 mg [Cyclobenzaprine 10 MG] 5 mg PO TID PRN PRN # 30 tablet PRN Reason: Pain Continue Sacubitril/Valsartan [Entresto 24 mg-26 mg Tablet] 1 each PO BID Rosuvastatin Calcium [Crestor] 20 mg PO HS Potassium Chloride 10 Meq Tab* [Klor Con 10 MEQ] 20 meq PO BID PANTOPRAZOLE 40 mg Tablet [Protonix 40MG Tablet] 40 mg PO QAM Levothyroxine Sodium 88 Mcg [Synthroid 88 Mcg] 88 mcg PO DAILY Insulin Lispro [Humalog] 18 unit SQ BID Insulin Lispro [Humalog] 22 unit SQ DINNER Insulin Glargine,Hum.rec.anlog [Toujeo Max Solostar] 52 unit SQ DAILY Furosemide 40 mg [Lasix 40 MG] 40 mg PO DAILY Ferrous Sulfate [Slow Release Iron] 140 mg PO DAILY Docusate Sodium 100 mg [Colace 100 MG] 100 mg PO BID Cyanocobalamin/Folic Acid [Vitamin Z14-Lswwz Acid Tablet] 1 each PO DAILY Cholecalciferol (Vitamin D3) [Vitamin D3] 10,000 unit PO WEEKLY Cetirizine HCl [Zyrtec] 10 mg PO DAILY Celecoxib 100 mg [celeBREX 100 MG] 100 mg PO BIDPRN PRN PRN Reason: arthritis Biotin 5,000 mcg SL DAILY Metoprolol Succinate 50 mg [Toprol Xl 50 MG] 50 mg PO DAILY Aspirin EC 325 mg [Ecotrin 325 MG] 325 mg PO DAILY Liothyronine Sodium 0.5 mcg PO BID Hydrocodone/Acetaminophen [Hydrocodone-Acetamin 10-325 mg] 1 - 2 tab PO Q4HPRN PRN PRN Reason: Pain Semaglutide [Ozempic] 1 mg SQ WEEKLY Instructions: Surgical Wound (DC), Postop Total Knee Replacement Exercises Lying Down, Postop Total Knee Replacement Exercises Seated or Standing Follow up with: YODIT DIAZ MD [Primary Care Provider] - 1 Week BRITTANI CASH Jr., MD [NON-STAFF PHY W/O PRIVILEGES] - 02/18/19 9:00 am DANIEL MONREAL NP [NON-STAFF PHY W/O PRIVILEGES] - 02/10/19 10:00 am Forms: Discharge Instructions
[2019-02-10] MEDS ORDERED: VITAMIN D PO SCH (10:00)
[2019-02-10] MEDS ORDERED: CHOLECALCIFEROL 10000 UNIT PO SCH (10:00)
== END 2019-02-08 15:05 | disposition home or self-care (01) | DRG 561 ==
LOC: MED SURG 16:24
PROVIDERS: ADMIT Family Medicine; ATTEND Family Medicine
DX: Z47.1 Aftercare following joint replacement surgery (principal); Z96.652 Presence of left artificial knee joint; I10 Essential (primary) hypertension; E11.9 Type 2 diabetes mellitus without complications; J44.9 Chronic obstructive pulmonary disease, unspecified; Z79.4 Long term (current) use of insulin; Z79.899 Other long term (current) drug therapy
CPT/HCPCS: 36415; 80048; 82962; 97110-GP; A9270-GY

== ENCOUNTER 2025-02-25 18:29 | Observation (INO) | payer MEDICARE ==
--- NOTE | 2025-02-25 19:18 | ERPHSYRPT ---
- History of Present Illness Time Seen by Provider: 02/25/25 19:10 Source: patient Exam Limitations: no limitations Patient Subjective Stated Complaint: Pt had a whipple done 5 weeks ago and the drain tube was removed today and she has been having pain in her left arm/neck/face/back since then, pt also had blood work done today in [place] and her potassium was 2.6 and was told to go to the ER for some potassium and Magnesium Triage Nursing Assessment: Pt brought to the ER by EMS, vitals wnl, rates abdominal pain as 5/10 at this time, pulses normal, skin n/w/d, lethargic, denies chest pain, no difficulty breathing, has a feeding tube in place that has never been used Physician History: Patient is a 79-year-old female history of hypertension hyperlipidemia diabetes hypothyroidism presents to our ED via EMS for evaluation of hypokalemia and pain to her left arm neck face back. Patient reports that she had a Whipple procedure for pancreatic cancer done 5 weeks ago. Patient states that her drain tube was removed today. Patient had labs drawn today at [facility] which showed a potassium of 2.6 low magnesium. Patient was advised to present to our ED for evaluation and treatment. Patient had that she is experiencing abdominal pain rated 5 out of 10. There is a feeding tube in place however patient states that she has not used it. Patient voices no other complaints or concerns at this time. Portions of this note were created with voice recognition technology. There may be grammatical, spelling, punctuation or sound alike errors Timing/Duration: today Severity: moderate Modifying Factors: Improves With: nothing Associated Symptoms: denies symptoms Allergies/Adverse Reactions: No Known Drug Allergies Allergy (Verified 02/25/25 18:50) Home Medications: Docusate Sodium 100 mg [Docusate Sodium 100 MG] 100 mg PO BID 02/06/19 [History] Sacubitril/Valsartan [Entresto 24 mg-26 mg Tablet] 1 each PO BID 09/01/22 [History] Finerenone [Kerendia] 20 mg PO DAILY 10/03/24 [History] Vibegron [Gemtesa] 75 mg PO DAILY 10/03/24 [History] PANTOPRAZOLE 40 mg Tablet [Protonix 40MG Tablet] 40 mg PO DAILY 10/26/24 [History] Cetirizine HCl 10 mg PO DAILY 02/25/25 [History] Ergocalciferol (Vitamin D2) [Vitamin D2] 50,000 unit PO Q7D 02/25/25 [History] Furosemide 20 mg [Lasix 20 mg] 20 mg PO DAILY 02/25/25 [History] Hydrocodone/Acetaminophen [Hydrocodone-Acetamin 5-325 mg] 1 tab PO Q6HPRN PRN MDD 4 02/25/25 [History] Hydroxyzine HCl 25 mg [Atarax 25 mg] 25 mg PO TID 02/25/25 [History] Insulin Lispro [Humalog] 4 units SQ TIDAC 02/25/25 [History] Lactulose [Lactulose 20 gm/30Ml Ud Cup] 15 ml PO TID 02/25/25 [History] Loratadine 10 mg [Claritin 10 mg] 10 mg PO DAILY 02/25/25 [History] Magnesium Chloride [Magnesium] 64 mg PO DAILY 02/25/25 [History] Metolazone 2.5 mg [Zaroxolyn 2.5 MG] 2.5 mg PO DAILY 02/25/25 [History] Metoprolol Tartrate 25 mg [Lopressor 25MG Tab] 25 mg PO BID 02/25/25 [History] Montelukast Sodium 10 mg [Singulair 10 MG] 10 mg PO DAILY 02/25/25 [History] Omeprazole 20 mg PO DAILY 02/25/25 [History] Polyethylene Glycol 3350 17 gm [Miralax Powder 17GM PACKET] 17 gm PO DAILY 02/25/25 [History] Potassium Chloride 10 meq PO DAILY 02/25/25 [History] Rosuvastatin Calcium 40 mg PO DAILY 02/25/25 [History] ondansetron HCL [Ondansetron HCl] 4 mg PO Q8H PRN 02/25/25 [History] Hx Tetanus, Diphtheria Vaccination/Date Given: No (unknown) Hx Influenza Vaccination/Date Given: Yes Hx Pneumococcal Vaccination/Date Given: Yes Travel Risk - International Travel Have you traveled outside of the country in past 3 weeks: No - Emerging Infectious Disease Are you exhibiting symptoms associated with any current EIDs: No Symptoms: Diarrhea, Vomitting Comment: low blood sugar related symptoms - Review of Systems All Other Systems: Reviewed and Negative - Past Medical History Pertinent Past Medical History: Yes Neurological History: No Pertinent History ENT History: No Pertinent History Cardiac History: High Cholesterol, Hypertension Respiratory History: No Pertinent History Endocrine Medical History: Diabetes Type II, Hypothyroidism Musculoskeletal History: Osteoarthritis GI Medical History: No Pertinent History History: No Pertinent History Psycho-Social History: No Pertinent History Female Reproductive Disorders: No Pertinent History Other Medical History: HX OF BILATERAL KNEE REPLACEMENT - LEFT 02/15, RIGHT 06/19 - Past Surgical History Past Surgical History: Yes Neuro Surgical History: No Pertinent History Cardiac: Angioplasty Respiratory: No Pertinent History Gastrointestinal: Cholecystectomy Genitourinary: No Pertinent History Musculoskeletal: Joint Replacement Female Surgical History: Hysterectomy Other Surgical History: Left total knee replacement, arthroscopy, pancreatic cancer, stent in bile duct - Social History Smoking Status: Never smoker Exposure to second hand smoke: Yes Drug Use: none - Social Determinants of Health Will the patient participate in the screening: Yes Do you worry about a steady place to live?: No Do you have any problems with any of the following?: No known problems In the past 12 months,have you had to go without utilities?: No Transportation Issues: No Has anyone in your support network made you feel unsafe?: No Have you or anyone in your house had to go w/o enough food: No - Nursing Vital Signs Nursing Vital Signs: Initial Vital Signs Pulse Rate 88 02/25/25 18:30 Respiratory Rate 21 02/25/25 18:30 Blood Pressure 102/45 02/25/25 18:30 O2 Sat by Pulse Oximetry 97 02/25/25 18:30 Pain Scale Pain Intensity 4 - Physical Exam General Appearance: no apparent distress, alert Eye Exam: PERRL/EOMI, eyes nml inspection Ears, Nose, Throat Exam: normal ENT inspection, pharynx normal, moist mucous membranes Neck Exam: normal inspection, full range of motion Respiratory Exam: normal breath sounds, lungs clear, No respiratory distress Cardiovascular Exam: regular rate/rhythm, normal heart sounds, normal peripheral pulses Gastrointestinal/Abdomen Exam: soft, normal bowel sounds, No tenderness, No mass Back Exam: normal inspection, normal range of motion, No CVA tenderness, No vertebral tenderness Extremity Exam: normal inspection, normal range of motion, pelvis stable Neurologic Exam: alert, oriented x 3, cooperative, normal mood/affect, sensation nml, No motor deficits Skin Exam: normal color, warm, dry, No rash Lymphatic Exam: No adenopathy SpO2 Interpretation: normal SpO2: 98 O2 Delivery: Room Air - Course Nursing assessment & vital signs reviewed: Yes EKG Interpreted by Me: RATE (84), Sinus Rhythm, NORMAL AXIS, prolonged QT interval, NORMAL QRS - CT Exams Abdomen/Pelvis CT Interpretation: Tele-radiologist Report (Status post Whipple surgery with tiny pelvic free fluid and left mid abdomen percutaneous feeding tube in situ. Marked fatty liver sigmoid diverticulosis and right renal cyst) Ordered Tests: Active Orders 24 hr Category Date Time Status Senior Publications Specialist STAT Care 02/25/25 19:20 Active EKG-ER Only STAT Care 02/25/25 20:01 Active IV Insertion STAT Care 02/25/25 19:19 Active Pulse Oximetry (ED) STAT Care 02/25/25 19:19 Active Telemetry q4h Care 02/25/25 20:55 Active ABDOMEN AND PELVIS W/0 CONTRAS [CT] Stat Exams 02/25/25 19:21 Taken CBC W DIFF Stat Lab 02/25/25 19:50 Completed CMP Stat Lab 02/25/25 19:50 Completed MAGNESIUM Stat Lab 02/25/25 19:50 Completed PHOSPHOROUS Stat Lab 02/25/25 19:50 Completed TROPONIN Q4H Lab 02/25/25 19:50 Completed TROPONIN Q4H Lab 02/25/25 23:30 Ordered TROPONIN Q4H Lab 02/26/25 03:30 Ordered UA W/RFX UR CULTURE Stat Lab 02/25/25 19:20 Ordered Medication Summary Generic Name Dose Route Start Last Admin Trade Name Freq PRN Reason Stop Dose Admin Potassium Chloride 20 meq in 100 mls @ 50 mls/hr 02/25/25 21:00 02/25/25 20:59 Potassium Chloride 20 Meq In Water 100ml IV 02/26/25 00:59 50 mls/hr Q2H KIMMY Administration Magnesium Sulfate/Dextrose 100 mls @ 100 mls/hr 02/25/25 21:00 02/25/25 21:34 Magnesium 1 Gm / 100 Ml D5w IV 02/25/25 22:59 100 mls/hr Q1H KIMMY Administration Lab/Rad Data: Laboratory Result Diagrams 02/25/25 19:50 02/25/25 19:50 Laboratory Results 02/25/25 02/25/25 02/25/25 Range/Units 19:50 19:50 19:50 WBC (3.98-10.04) x10^3/uL RBC (3.93-5.22) x10^6/uL Hgb (11.2-15.7) g/dL Hct (34.1-44.9) % MCV (79.4-94.8) fL MCH (25.6-32.2) pg MCHC (32.2-35.5) g/dL RDW (11.7-14.4) % Plt Count (182-369) x10^3/uL MPV (9.4-12.3) fL Gran % (34.0-71.1) % Immature Gran % (Auto) (0.001-0.429) % Nucleat RBC Rel Count (0.00-0.2) % Eos # (Auto) (0.04-0.36) x10^3/uL Immature Gran # (Auto) (0.001-0.031) x10^3u/L Absolute Lymphs (auto) (1.18-3.74) x10^3/uL Absolute Monos (auto) (0.24-0.86) x10^3/uL Absolute Nucleated RBC (0.00-0.012) x10^3u/L Lymphocytes % (19.3-51.7) % Monocytes % (4.7-12.5) % Eosinophils % (0.7-5.8) % Basophils % (0.1-1.2) % Absolute Granulocytes (1.56-6.13) x10^3/uL Basophils # (0.01-0.08) x10^3/uL Sodium 134 L (135-145) mmol/L Potassium 2.6 L* (3.5-5.1) mmol/L Chloride 103 (98-107) mmol/L Carbon Dioxide 29 (22-30) mmol/L Anion Gap 5.5 (5-15) MEQ/L BUN 4 L (7-17) mg/dL Creatinine 0.65 (0.52-1.04) mg/dL Estimated GFR 90.6 ML/MIN Glucose 155 H (74-106) mg/dL Calcium 7.1 L (8.4-10.2) mg/dL Phosphorus 4.1 (2.5-4.5) mg/dL Magnesium 1.1 L* (1.6-2.3) mg/dL Total Bilirubin 0.40 (0.2-1.3) mg/dL AST 32 (14-36) U/L ALT 13 (0-35) U/L Alkaline Phosphatase 96 (38-126) U/L Troponin I < 0.012 (0.000-0.033) ng/mL Serum Total Protein 4.6 L (6.3-8.2) g/dL Albumin 2.1 L (3.5-5.0) g/dL 02/25/25 Range/Units 19:50 WBC 5.1 (3.98-10.04) x10^3/uL RBC 3.96 (3.93-5.22) x10^6/uL Hgb 11.9 (11.2-15.7) g/dL Hct 36.1 (34.1-44.9) % MCV 91.2 (79.4-94.8) fL MCH 30.1 (25.6-32.2) pg MCHC 33.0 (32.2-35.5) g/dL RDW 14.1 (11.7-14.4) % Plt Count 165 L (182-369) x10^3/uL MPV 9.7 (9.4-12.3) fL Gran % 81.8 H (34.0-71.1) % Immature Gran % (Auto) 0.4 (0.001-0.429) % Nucleat RBC Rel Count 0.0 (0.00-0.2) % Eos # (Auto) 0.01 L (0.04-0.36) x10^3/uL Immature Gran # (Auto) 0.02 (0.001-0.031) x10^3u/L Absolute Lymphs (auto) 0.51 L (1.18-3.74) x10^3/uL Absolute Monos (auto) 0.38 (0.24-0.86) x10^3/uL Absolute Nucleated RBC 0.00 (0.00-0.012) x10^3u/L Lymphocytes % 10.0 L (19.3-51.7) % Monocytes % 7.4 (4.7-12.5) % Eosinophils % 0.2 L (0.7-5.8) % Basophils % 0.2 (0.1-1.2) % Absolute Granulocytes 4.18 (1.56-6.13) x10^3/uL Basophils # 0.01 (0.01-0.08) x10^3/uL Sodium (135-145) mmol/L Potassium (3.5-5.1) mmol/L Chloride (98-107) mmol/L Carbon Dioxide (22-30) mmol/L Anion Gap (5-15) MEQ/L BUN (7-17) mg/dL Creatinine (0.52-1.04) mg/dL Estimated GFR ML/MIN Glucose (74-106) mg/dL Calcium (8.4-10.2) mg/dL Phosphorus (2.5-4.5) mg/dL Magnesium (1.6-2.3) mg/dL Total Bilirubin (0.2-1.3) mg/dL AST (14-36) U/L ALT (0-35) U/L Alkaline Phosphatase (38-126) U/L Troponin I (0.000-0.033) ng/mL Serum Total Protein (6.3-8.2) g/dL Albumin (3.5-5.0) g/dL - Progress Progress: improved Progress Note: Patient is a 79-year-old female history of hypertension hyperlipidemia diabetes hypothyroidism presents to our ED via EMS for evaluation of hypokalemia and pain to her left arm neck face back. Patient reports that she had a Whipple procedure for pancreatic cancer done 5 weeks ago. Patient states that her drain tube was removed today. Patient had labs drawn today at [facility] which showed a potassium of 2.6 low magnesium. Patient was advised to present to our ED for evaluation and treatment. Physical exam reveals some mild abdominal tenderness. CT abdomen pelvis negative for acute intra-abdominal pathology. Potassium 2.6. Magnesium 1.1. Patient receiving magnesium and potassium replacement. Phosphorus within normal limits. Measured calcium low at 7.1 but corrected calcium is 8.6. Will hold off on calcium supplementation at this time. Electrolyte replacement initiated. Patient will require hospitalization for further evaluation and treatment. Case discussed with on-call hospitalist Dr. Charles who accepts admission to observation. Plan of care discussed with patient and her son who is at the bedside. They agree to admission at [facility] for further evaluation and treatment. History obtained from patient and son who is at the bedside. Differential diagnosis includes gastrointestinal losses, renal losses, nutritional deficiency Portions of this note were created with voice recognition technology. There may be grammatical, spelling, punctuation or sound alike errors Hospitalist Dr. Charles accepts admission at 10:03 PM. Complexity of problem addressed is moderate acute complicated. No critical care time. Complexity of data reviewed and analyzed is extensive. Test ordered chest reviewed results analyzed and correlated clinically with history and physical exam. Risk of complication at risk of morbidity/mortality of patient management is high. Patient requires hospitalization for further evaluation and treatment. Vital stable. Time spent to admit patient is approximately 15 minutes. Plan of care established for shared decision making. No social determinants of health present to impede follow-up. Portions of this note were created with voice recognition technology. There may be grammatical, spelling, punctuation or sound alike errors 02/25/25 22:11 Counseled pt/family regarding: lab results, diagnosis, rad results - Departure Departure Disposition: Observation Clinical Impression: Hypokalemia, Hypomagnesemia, Hypocalcemia, Abdominal pain, Generalized weakness Condition: Stable Critical Care Time: No Referrals: HEMA DAVIS NP [NON-STAFF PHY W/O PRIVILEGES, [facility]] - Follow up/PCP as directed
[2025-02-25 19:58] LABS: BASOPHIL % 0.2 % (0.1-1.2); Basophil (Absolute #) 0.01 x10^3/uL (0.01-0.08); Eosinophil (Absolute #) 0.01 x10^3/uL (0.04-0.36); Hematocrit 36.1 % (34.1-44.9); Hemoglobin 11.9 g/dL (11.2-15.7); IMMATURE GRAN # 0.02 x10^3u/L (0.001-0.031); IMMATURE GRAN % 0.4 % (0.001-0.429); Lymphocyte (Absolute #) 0.51 x10^3/uL (1.18-3.74); Mean Corpuscular Hemoglobin 30.1 pg (25.6-32.2); Mean Corpuscular Hgb Concent. 33.0 g/dL (32.2-35.5); Monocyte (Absolute #) 0.38 x10^3/uL (0.24-0.86); NUCLEATED RBC # 0.00 x10^3u/L (0.00-0.012); NUCLEATED RBC % 0.0 % (0.00-0.2); Platelet Count 165 x10^3/uL (182-369); Red Blood Count 3.96 x10^6/uL (3.93-5.22); White Blood Count 5.1 x10^3/uL (3.98-10.04)
[2025-02-25 20:18] LABS: Calcium 7.1 mg/dL (8.4-10.2); Carbon Dioxide 29.0 mmol/L (22-30); Creatinine 1 0.65 mg/dL (0.52-1.04); EST GLOMERULAR FILTRATION RATE 90.6 ML/MIN; Glucose 155.0 mg/dL (74-106); SGOT/AST 32.0 U/L (14-36); SGPT/ALT 13.0 U/L (0-35); Total Protein 4.6 g/dL (6.3-8.2)
[2025-02-25 20:25] LABS: Potassium 2.6 mmol/L (3.5-5.1)
[2025-02-25] MEDS ORDERED: POTASSIUM CHLORIDE 20 mEq IN WATER 100ML 100 ML IV ONE ×2 (20:57→22:52)
[2025-02-25] MEDS ORDERED: Magnesium 1 Gm / 100 Ml D5W*** 100 ML IV ONE ×2 (20:57→21:33)
[2025-02-25] MEDS: POTASSIUM CHLORIDE 20 mEq IN WATER 100ML 20 MEQ/100 ML BAG IV SCH (20:59)
[2025-02-25] MEDS: Magnesium 1 Gm / 100 Ml D5W*** 100 ML IV SCH (21:00)
[2025-02-26 04:27] LABS: Calcium 7.1 mg/dL (8.4-10.2); Carbon Dioxide 27.0 mmol/L (22-30); Creatinine 1 0.66 mg/dL (0.52-1.04); EST GLOMERULAR FILTRATION RATE 90.3 ML/MIN; Glucose 197.0 mg/dL (74-106); Potassium 3.2 mmol/L (3.5-5.1); SGOT/AST 23.0 U/L (14-36); SGPT/ALT 11.0 U/L (0-35); Total Protein 4.3 g/dL (6.3-8.2)
[2025-02-26] MEDS ORDERED: Miralax Powder 17GM PACKET PO PRN (06:25)
[2025-02-26] MEDS ORDERED: NON-FORMULARY ITEM (Ondansetron Hcl [Ondansetron Hcl] 4 MG Tablet) PO PRN (06:25)
--- NOTE | 2025-02-26 06:57 | PCM.HP ---
History of Present Illness - Chief Complaint Chief Complaint: Electrolyte abnormalities, generalized weakness History of Present Illness: Severe electrolyte abnormalities - hypokalemia, hypomagnesemia (acute, high risk) Give additional repletion as needed based on morning BMP. Discussed the need for close outpatient monitoring in the coming weeks to titrate any daily supplement as needed due to the high risk of cardiac dysfunction if electrolyte abnormalities progress to a severe level. Magnesium 2gm given in ER, will follow up in morning labs and replete as needed Potassium 80 mEq given in ER, will follow up in morning labs and replete as needed GI malignancy s/p Whipple procedure (recent, ongoing management) Whipple procedure was performed five weeks prior due to pancreatic malignancy. Discussed the need for annual labs to monitor for vitamin and mineral deficiency. This includes minimum annual monitoring for fat-soluble vitamins (A, D, E, K), iron, zinc, calcium, vitamin B12, and folate. She states understanding for the need for regular monitoring. Volume depletion, malnutrition (acute, ongoing management) Reporting an improving appetite. Discussed use of PRN ondansetron. Administered gentle IV hydration today with 1 liter of normal saline at 75 cc/hr. Hypertension (chronic, controlled) Conservative management in the setting of acute illness and volume depletion. Diabetes mellitus (chronic, controlled) Resumed reduced dose meal time Lispro, home dose of 4 units, resumed at 2 units Suspected HFpEF, Stage C (ongoing evaluation) Resumed home metoprolol and Entresto holding home furosemide and finerenone given volume depletion Subjective Shayna is a 79-year-old woman with a past medical history of pancreatic malignancy status post Whipple procedure five weeks ago, hypertension, hyperlipidemia, diabetes mellitus, and hypothyroidism. She was referred to the Emergency Department by her primary care physician due to serial labs revealing severe electrolyte abnormalities, including a magnesium of 1.1 and potassium of 2.6. In the five weeks since her procedure, she has experienced episodes of nausea and vomiting, and has also undergone a round of chemotherapy which is known to trigger these symptoms. She reports having completed two cycles of chemotherapy and is scheduled for an oncology follow-up in three months, though no further chemotherapy is currently scheduled due to concerns about her tolerance given severe side effects. Her appetite has been improving post- procedure with less frequent nausea and vomiting, but symptoms were reportedly quite severe yesterday. Home cardiac medications Metoprolol tartrate 25 mg BID Entresto 24-26 mg BID Furosemide 20 mg qday Metolazone 2.5 mg qday Potassium chloride 10 mEq daily Magnesium chloride 64 mg qday Physical examination Vital Signs Blood Pressure: 102/45 mmHg Heart Rate: 88 bpm Respiratory Rate: 21 breaths/min Oxygen Saturation: 97% on room air Neurological Alert and oriented to person, place, and time. Normal thought process and content. Not in acute distress. Cardiovascular Non-tachycardic. Respiratory Non-tachypneic. Abdominal Not distended. Musculoskeletal No gross deformities. Lab and Studies Reviewed Complete blood count from 02/25/2025: Hemoglobin 11.9, Hematocrit 36%, Platelets 165, WBC 5.1. Independently reviewed and interpreted by me. Basic metabolic panel from 02/25/2025: Sodium 134, Potassium 2.6, Chloride 103, Bicarbonate 29, BUN 1.4, Creatinine 0.65. Independently reviewed and interpreted by me. Notes reviewed Reviewed the ER physician's documentation note from 02/25/2025. MDM Summary 1. Number and Complexity of Problems Addressed (CoPA): High Complexity: This is based on the management of multiple morbidities requiring intensive management, including pancreatic malignancy with recent major surgery (Whipple procedure), severe electrolyte abnormalities (hypokalemia, hypomagnesemia) posing a threat to bodily function (cardiac dysfunction), and multiple other stable chronic illnesses (hypertension, diabetes, hyperlipidemia, hypothyroidism) in the context of an acute illness (volume depletion, malnutrition). 2. Amount and/or Complexity of Data to be Reviewed and Analyzed (Data): Limited: Reasoning is based on the review of two lab panels (CBC, BMP) and review of one external document (ER physician's note). 3. Risk of Complications, Morbidity, and/or Mortality (Risk): High Risk: The decision for management involves IV fluids with additives (electrolyte repletion), and the underlying severe electrolyte abnormalities pose a high risk of cardiac complications, including arrhythmias. There is also consideration for escalation of care and need for intensive outpatient monitoring. - Review of Systems Constitutional: No Fever, No Chills Eyes: No Symptoms Respiratory: No Symptoms Cardiac: No Symptoms Abdominal/Gastrointestinal: Nausea, No Hematemesis, No Melena Genitourinary Symptoms: No Symptoms Musculoskeletal: No Symptoms Psychological: No Symptoms Endocrine: No Symptoms Hematologic/Lymphatic: No Symptoms Immunological/Allergic: No Symptoms Medications & Allergies Home Medications: Home Medication List Docusate Sodium 100 mg [Docusate Sodium 100 MG] 100 mg PO BID 02/06/19 [History Confirmed 02/25/25] Sacubitril/Valsartan [Entresto 24 mg-26 mg Tablet] 1 each PO BID 09/01/22 [History Confirmed 02/25/25] Finerenone [Kerendia] 20 mg PO DAILY 10/03/24 [History Confirmed 02/25/25] Vibegron [Gemtesa] 75 mg PO DAILY 10/03/24 [History Confirmed 02/25/25] PANTOPRAZOLE 40 mg Tablet [Protonix 40MG Tablet] 40 mg PO DAILY 10/26/24 [History Confirmed 02/25/25] Ergocalciferol (Vitamin D2) [Vitamin D2] 50,000 unit PO Q7D 02/25/25 [History Confirmed 02/26/25] Furosemide 20 mg [Lasix 20 mg] 40 mg PO DAILY 02/25/25 [History Confirmed 02/26/25] Hydrocodone/Acetaminophen [Hydrocodone-Acetamin 5-325 mg] 1 tab PO Q6HPRN PRN MDD 4 02/25/25 [History Confirmed 02/25/25] Hydroxyzine HCl 25 mg [Atarax 25 mg] 25 mg PO TID PRN 02/25/25 [History Confirmed 02/25/25] Insulin Lispro [Humalog] 4 units SQ TIDAC 02/25/25 [History Confirmed 02/25/25] Loratadine 10 mg [Claritin 10 mg] 10 mg PO DAILY 02/25/25 [History Confirmed 02/25/25] Magnesium Chloride [Magnesium] 64 mg PO DAILY 02/25/25 [History Confirmed 02/25/25] Metolazone 2.5 mg [Zaroxolyn 2.5 MG] 2.5 mg PO DAILY 02/25/25 [History Confirmed 02/25/25] Metoprolol Tartrate 25 mg [Lopressor 25MG Tab] 25 mg PO DAILY 02/25/25 [History Confirmed 02/26/25] Montelukast Sodium 10 mg [Singulair 10 MG] 10 mg PO DAILY 02/25/25 [History Confirmed 02/25/25] Omeprazole 20 mg PO DAILY 02/25/25 [History Confirmed 02/25/25] Polyethylene Glycol 3350 17 gm [Miralax Powder 17GM PACKET] 17 gm PO DAILY PRN 02/25/25 [History Confirmed 02/25/25] Potassium Chloride 10 meq PO DAILY 02/25/25 [History Confirmed 02/25/25] Rosuvastatin Calcium 40 mg PO DAILY 02/25/25 [History Confirmed 02/25/25] ondansetron HCL [Ondansetron HCl] 4 mg PO Q8H PRN 02/25/25 [History Confirmed 02/25/25] Allergies/Adverse Reactions: Allergies Allergy/AdvReac Type Severity Reaction Status Date / Time No Known Drug Allergies Allergy Verified 02/25/25 18:50 - Past Medical History Past Medical History: Yes Neurological History: No Pertinent History ENT History: No Pertinent History Cardiac History: High Cholesterol Respiratory History: No Pertinent History Endocrine Medical History: Diabetes Type II Musculoskelatal History: Osteoarthritis GI Medical History: No Pertinent History, Other History: No Pertinent History Pyscho-Social History: No Pertinent History Reproductive Disorders: No Pertinent History Comment: HX OF BILATERAL KNEE REPLACEMENT - LEFT 02/15, RIGHT 06/19. pancreatic cancer - Past Surgical History Past Surgical History: Yes Neuro Surgical History: No Pertinent History Cardiac History: Angioplasty Respiratory Surgery: No Pertinent History GI Surgical History: Cholecystectomy, Other Genitourinary Surgical Hx: No Pertinent History Musculskeletal Surgical Hx: Joint Replacement Female Surgical History: Hysterectomy Other Surgical History: Left total knee replacement, arthroscopy, pancreatic cancer, stent in bile duct. whipple 5 weeks ago - Social History Smoking Status: Never smoker Exposure to second hand smoke: Yes Alcohol: None Drug Use: none - Social Determinants of Health Will the patient participate in the screening: Yes Do you worry about a steady place to live?: No Do you have any problems with any of the following?: No known problems In the past 12 months,have you had to go without utilities?: No Have you or anyone in your house had to go without enough: No Transportation Issues: No Has anyone in your support network made you feel unsafe?: No Does the patient want assistance with any of the above?: No - Physical Exam Vital Signs: Vital Signs - 24 hr Temp Pulse Resp BP BP Pulse Ox 02/26/25 04:00 97.8 F 91 H 16 83/38 94 L 02/26/25 03:45 16 02/26/25 00:00 99.7 F 94 H 18 93/46 96 02/25/25 23:13 99.7 F 94 H 18 93/46 96 02/25/25 22:30 94 H 18 90/34 96 02/25/25 22:24 98 02/25/25 22:00 94 H 14 91/33 96 02/25/25 21:30 95 H 14 88/32 95 02/25/25 21:00 99 H 14 92/39 97 02/25/25 20:40 101 H 20 93/49 99 02/25/25 20:00 80 18 84/45 98 02/25/25 19:30 96 H 20 95/43 96 02/25/25 19:19 97 02/25/25 19:00 89 21 113/39 96 02/25/25 18:42 99.2 F 85 14 102/45 98 02/25/25 18:30 88 21 102/45 97 Results - Labs Lab/Micro Results: Lab Results-Last 24 Hours 02/25/25 02/25/25 02/25/25 Range/Units 19:50 19:50 19:50 WBC 5.1 (3.98-10.04) x10^3/uL RBC 3.96 (3.93-5.22) x10^6/uL Hgb 11.9 (11.2-15.7) g/dL Hct 36.1 (34.1-44.9) % MCV 91.2 (79.4-94.8) fL MCH 30.1 (25.6-32.2) pg MCHC 33.0 (32.2-35.5) g/dL RDW 14.1 (11.7-14.4) % Plt Count 165 L (182-369) x10^3/uL MPV 9.7 (9.4-12.3) fL Gran % 81.8 H (34.0-71.1) % Immature Gran % (Auto) 0.4 (0.001-0.429) % Nucleat RBC Rel Count 0.0 (0.00-0.2) % Eos # (Auto) 0.01 L (0.04-0.36) x10^3/uL Immature Gran # (Auto) 0.02 (0.001-0.031) x10^3u/L Absolute Lymphs (auto) 0.51 L (1.18-3.74) x10^3/uL Absolute Monos (auto) 0.38 (0.24-0.86) x10^3/uL Absolute Nucleated RBC 0.00 (0.00-0.012) x10^3u/L Lymphocytes % 10.0 L (19.3-51.7) % Monocytes % 7.4 (4.7-12.5) % Eosinophils % 0.2 L (0.7-5.8) % Basophils % 0.2 (0.1-1.2) % Absolute Granulocytes 4.18 (1.56-6.13) x10^3/uL Basophils # 0.01 (0.01-0.08) x10^3/uL Sodium 134 L (135-145) mmol/L Potassium 2.6 L* (3.5-5.1) mmol/L Chloride 103 (98-107) mmol/L Carbon Dioxide 29 (22-30) mmol/L Anion Gap 5.5 (5-15) MEQ/L BUN 4 L (7-17) mg/dL Creatinine 0.65 (0.52-1.04) mg/dL Estimated GFR 90.6 ML/MIN Glucose 155 H (74-106) mg/dL Calcium 7.1 L (8.4-10.2) mg/dL Phosphorus (2.5-4.5) mg/dL Magnesium 1.1 L* (1.6-2.3) mg/dL Total Bilirubin 0.40 (0.2-1.3) mg/dL AST 32 (14-36) U/L ALT 13 (0-35) U/L Alkaline Phosphatase 96 (38-126) U/L Troponin I < 0.012 (0.000-0.033) ng/mL Serum Total Protein 4.6 L (6.3-8.2) g/dL Albumin 2.1 L (3.5-5.0) g/dL 02/25/25 02/25/25 02/26/25 Range/Units 19:50 23:58 03:40 WBC (3.98-10.04) x10^3/uL RBC (3.93-5.22) x10^6/uL Hgb (11.2-15.7) g/dL Hct (34.1-44.9) % MCV (79.4-94.8) fL MCH (25.6-32.2) pg MCHC (32.2-35.5) g/dL RDW (11.7-14.4) % Plt Count (182-369) x10^3/uL MPV (9.4-12.3) fL Gran % (34.0-71.1) % Immature Gran % (Auto) (0.001-0.429) % Nucleat RBC Rel Count (0.00-0.2) % Eos # (Auto) (0.04-0.36) x10^3/uL Immature Gran # (Auto) (0.001-0.031) x10^3u/L Absolute Lymphs (auto) (1.18-3.74) x10^3/uL Absolute Monos (auto) (0.24-0.86) x10^3/uL Absolute Nucleated RBC (0.00-0.012) x10^3u/L Lymphocytes % (19.3-51.7) % Monocytes % (4.7-12.5) % Eosinophils % (0.7-5.8) % Basophils % (0.1-1.2) % Absolute Granulocytes (1.56-6.13) x10^3/uL Basophils # (0.01-0.08) x10^3/uL Sodium 133 L (135-145) mmol/L Potassium 3.2 L D (3.5-5.1) mmol/L Chloride 102 (98-107) mmol/L Carbon Dioxide 27 (22-30) mmol/L Anion Gap 7.6 (5-15) MEQ/L BUN 5 L (7-17) mg/dL Creatinine 0.66 (0.52-1.04) mg/dL Estimated GFR 90.3 ML/MIN Glucose 197 H (74-106) mg/dL Calcium 7.1 L (8.4-10.2) mg/dL Phosphorus 4.1 (2.5-4.5) mg/dL Magnesium 1.9 (1.6-2.3) mg/dL Total Bilirubin 0.50 (0.2-1.3) mg/dL AST 23 (14-36) U/L ALT 11 (0-35) U/L Alkaline Phosphatase 87 (38-126) U/L Troponin I < 0.012 (0.000-0.033) ng/mL Serum Total Protein 4.3 L (6.3-8.2) g/dL Albumin 1.9 L (3.5-5.0) g/dL 02/26/25 Range/Units 03:53 WBC (3.98-10.04) x10^3/uL RBC (3.93-5.22) x10^6/uL Hgb (11.2-15.7) g/dL Hct (34.1-44.9) % MCV (79.4-94.8) fL MCH (25.6-32.2) pg MCHC (32.2-35.5) g/dL RDW (11.7-14.4) % Plt Count (182-369) x10^3/uL MPV (9.4-12.3) fL Gran % (34.0-71.1) % Immature Gran % (Auto) (0.001-0.429) % Nucleat RBC Rel Count (0.00-0.2) % Eos # (Auto) (0.04-0.36) x10^3/uL Immature Gran # (Auto) (0.001-0.031) x10^3u/L Absolute Lymphs (auto) (1.18-3.74) x10^3/uL Absolute Monos (auto) (0.24-0.86) x10^3/uL Absolute Nucleated RBC (0.00-0.012) x10^3u/L Lymphocytes % (19.3-51.7) % Monocytes % (4.7-12.5) % Eosinophils % (0.7-5.8) % Basophils % (0.1-1.2) % Absolute Granulocytes (1.56-6.13) x10^3/uL Basophils # (0.01-0.08) x10^3/uL Sodium (135-145) mmol/L Potassium (3.5-5.1) mmol/L Chloride (98-107) mmol/L Carbon Dioxide (22-30) mmol/L Anion Gap (5-15) MEQ/L BUN (7-17) mg/dL Creatinine (0.52-1.04) mg/dL Estimated GFR ML/MIN Glucose (74-106) mg/dL Calcium (8.4-10.2) mg/dL Phosphorus (2.5-4.5) mg/dL Magnesium (1.6-2.3) mg/dL Total Bilirubin (0.2-1.3) mg/dL AST (14-36) U/L ALT (0-35) U/L Alkaline Phosphatase (38-126) U/L Troponin I < 0.012 (0.000-0.033) ng/mL Serum Total Protein (6.3-8.2) g/dL Albumin (3.5-5.0) g/dL - Radiology Impressions Radiology Exams & Impressions: Radiology Procedures Category Date Time Status ABDOMEN AND PELVIS W/0 CONTRAS [CT] Stat Exams 02/25/25 19:21 Taken Telemedicine Encounter - Telemedicine Encounter Telemedicine Encounter: "The entirety of this encounter was performed via Telemedicine" This visit was performed using real-time audio and video connection between my location and thepatients locationwith the assistance of a surrogateat the patients location. Written or verbal consent was obtained from the patient/guardian to perform this visit usingsynchrMed fusiontelemedicine technology. Any patient questions regarding the telemedicine interaction were answered.
[2025-02-26] MEDS ORDERED: ZOFRAN ODT 4 MG PO PRN (07:16)
[2025-02-26] MEDS ORDERED: INSULIN LISPRO 2 UNIT SQ SCH (07:30)
[2025-02-26] MEDS ORDERED: NON-FORMULARY ITEM (Insulin Lispro 1 UNIT Ml) SQ SCH (07:30)
[2025-02-26] MEDS: HUMALOG SQ SCH (07:52)
[2025-02-26] MEDS: NORCO 5/325 MG PO PRN (07:55)
[2025-02-26 08:27] LABS: Glucose, Urine Negative (Negative); Protein,Urine Dip Negative (Negative); RBC 0-2 /HPF (0-5)
--- NOTE | 2025-02-26 09:12 | XRAY ---
Indication: Pain. Status post Whipple surgery for pancreatic cancer. Multiple contiguous axial images obtained through the abdomen and pelvis without contrast as ordered. Comparison: October 03, 2024 Lung bases again demonstrates bilateral dependent atelectasis with new tiny right effusion. Heart not enlarged with new incompletely visualized central venous access catheter tip in SVC. Interval Whipple surgery with now numerous hepatic surgical clips and left midabdomen percutaneous feeding catheter with tip in left mid abdomen small bowel. Pelvis demonstrates tiny nonspecific free fluid. No walled-off fluid collection or free air. No free air. Noncontrasted stomach and bowel loops appear nonobstructed again with minimal sigmoid diverticulosis. Liver now demonstrates marked diffuse fatty attenuation and minimal pneumobilia. Spleen again demonstrates numerous splenic calcified granulomas. Stable small right mid renal cyst. Remaining adrenal glands, kidneys, ureters, and bladder are unremarkable for noncontrast exam. Again mild scattered aortoiliac calcifications without AAA. Osseous structures intact again with osteopenia, minimal degenerative changes throughout spine, and mild degenerative changes both hips. Impression: 1. New tiny nonspecific right effusion. 2. Status post Whipple surgery with percutaneous feeding catheter in Situ. Tiny pelvic free fluid presumed related. No walled-off fluid collection or free air on this noncontrast exam. 3. Chronic findings including fatty liver, right renal cyst, sigmoid diverticulosis, arteriosclerotic disease, chronic bony findings, and old granulomatous disease.
[2025-02-26] MEDS: Protonix 40MG Tablet PO SCH ×2 (09:18→09:22)
[2025-02-26] MEDS: Klor Con PO SCH ×2 (09:18→15:04)
[2025-02-26] MEDS: Singulair 10 MG PO SCH (09:18)
[2025-02-26] MEDS: Lopressor 25MG Tab PO SCH (09:19)
[2025-02-26] MEDS: Docusate Sodium 100 MG PO SCH (09:19)
[2025-02-26] MEDS: CLARITIN 10 MG PO SCH (09:19)
[2025-02-26] MEDS: ZOCOR 20MG PO SCH (09:19)
[2025-02-26] MEDS: ENTRESTO 49 MG-51 MG TABLET PO SCH (09:20)
[2025-02-26] MEDS ORDERED: NON-FORMULARY ITEM (Sacubitril/Valsartan [Entresto 24 Mg-26 Mg Tablet] 1 EACH Tablet) PO SCH (10:00)
[2025-02-26] MEDS ORDERED: NON-FORMULARY ITEM (Omeprazole [Omeprazole] 20 MG Tablet.Dr) PO SCH (10:00)
[2025-02-26] MEDS ORDERED: NON-FORMULARY ITEM (Rosuvastatin Calcium [Rosuvastatin Calcium] 40 MG Tablet) PO SCH (10:00)
--- NOTE | 2025-02-26 10:36 | XRAY ---
Indication: Edema. Two-dimensional sonogram and color Doppler imaging major venous vessels left and right leg performed. Comparison: None Nonoccluding thrombi seen in the right femoral, popliteal, and posterior tibial veins. No other thrombus seen in the examined deep venous vessels left and right leg including greater saphenous vein. Patent veins demonstrate normal compressibility and normal venous waveforms. Impression: Nonoccluding DVTs right leg as detailed. Left leg negative for DVT.
--- NOTE | 2025-02-26 11:37 | PCM.NOTE ---
Evaluated patient at bedside. Patient reports several days of right leg pain and swelling. On exam, there is mild right lower extremity edema with tenderness along the posterior calf. Venous duplex ultrasound revealed nonoccluding thrombi in the right femoral, popliteal, and posterior tibial veins, consistent with acute DVT in the setting of pancreatic cancer. No thrombus was identified in the left leg. Therapeutic anticoagulation was initiated with enoxaparin, with plans to transition to Eliquis 10 mg orally twice daily for 7 days, followed by 5 mg twice daily thereafter. CBC and renal function will be monitored. The patient was counseled on signs of bleeding and pulmonary embolism and advised to report any new chest pain, dyspnea, or hemoptysis. Anticoagulation will be continued indefinitely most likely while malignancy remains active. Leg elevation, ambulation as tolerated, and avoidance of prolonged immobility were also advised. Patient will follow up with hematology/oncology/ and PCP. CM will check cost of Eliquis which has been sent to the pharmacy.
[2025-02-26] MEDS: ENOXAPARIN SODIUM SQ SCH (11:49)
[2025-02-26] MEDS: TYLENOL EXTRA STRENGTH 500 MG PO STA (21:38)
[2025-02-26] MEDS: ATARAX 25 MG PO PRN (21:50)
[2025-02-26 22:05] LABS: BASOPHIL % 0.3 % (0.1-1.2); Basophil (Absolute #) 0.02 x10^3/uL (0.01-0.08); Eosinophil (Absolute #) 0.20 x10^3/uL (0.04-0.36); Hematocrit 33.1 % (34.1-44.9); Hemoglobin 10.5 g/dL (11.2-15.7); IMMATURE GRAN # 0.02 x10^3u/L (0.001-0.031); IMMATURE GRAN % 0.3 % (0.001-0.429); Lymphocyte (Absolute #) 0.90 x10^3/uL (1.18-3.74); Mean Corpuscular Hemoglobin 29.8 pg (25.6-32.2); Mean Corpuscular Hgb Concent. 31.7 g/dL (32.2-35.5); Monocyte (Absolute #) 0.43 x10^3/uL (0.24-0.86); NUCLEATED RBC # 0.00 x10^3u/L (0.00-0.012); NUCLEATED RBC % 0.0 % (0.00-0.2); Platelet Count 167 x10^3/uL (182-369); Red Blood Count 3.52 x10^6/uL (3.93-5.22); White Blood Count 6.1 x10^3/uL (3.98-10.04)
[2025-02-27 00:06] VITALS: RESP 16; O2SAT 93
[2025-02-27 05:01] LABS: BASOPHIL % 0.5 % (0.1-1.2); Basophil (Absolute #) 0.03 x10^3/uL (0.01-0.08); Eosinophil (Absolute #) 0.44 x10^3/uL (0.04-0.36); Hematocrit 33.1 % (34.1-44.9); Hemoglobin 10.8 g/dL (11.2-15.7); IMMATURE GRAN # 0.04 x10^3u/L (0.001-0.031); IMMATURE GRAN % 0.7 % (0.001-0.429); Lymphocyte (Absolute #) 0.71 x10^3/uL (1.18-3.74); Mean Corpuscular Hemoglobin 30.4 pg (25.6-32.2); Mean Corpuscular Hgb Concent. 32.6 g/dL (32.2-35.5); Monocyte (Absolute #) 0.45 x10^3/uL (0.24-0.86); NUCLEATED RBC # 0.00 x10^3u/L (0.00-0.012); NUCLEATED RBC % 0.0 % (0.00-0.2); Platelet Count 173 x10^3/uL (182-369); Red Blood Count 3.55 x10^6/uL (3.93-5.22); White Blood Count 5.8 x10^3/uL (3.98-10.04)
[2025-02-27 05:23] LABS: Calcium 6.7 mg/dL (8.4-10.2); Carbon Dioxide 24.0 mmol/L (22-30); Creatinine 1 0.9 mg/dL (0.52-1.04); EST GLOMERULAR FILTRATION RATE 65.8 ML/MIN; Glucose 123.0 mg/dL (74-106); Potassium 3.8 mmol/L (3.5-5.1); SGOT/AST 16.0 U/L (14-36); SGPT/ALT 8.0 U/L (0-35); Total Protein 4.0 g/dL (6.3-8.2)
[2025-02-27 07:09] VITALS: BP 111/55; PULSE 75; TEMP 98.6
[2025-02-27] MEDS: ELIQUIS 2.5 MG TABLET PO SCH (09:23)
--- NOTE | 2025-02-27 11:31 | PCM.DS ---
Discharge Summary Date of Admission: 02/25/25 23:01 Date of Discharge: 02/27/25 Admitting Physician: FRANCISCO J JOHNSON MD Primary Care Provider: PATRIC CEBALLOS MD Allergies Allergies No Known Drug Allergies Allergy (Verified 02/25/25 18:50) Hospital Summary - Hospital Course Hospital Course: Ms. Hsieh is a 79-year-old woman with a history of pancreatic adenocarcinoma status post Whipple procedure five weeks ago, hypertension, hyperlipidemia, diabetes mellitus, hypothyroidism, and probable HFpEF. She presented after outpatient labs revealed severe electrolyte derangementsmagnesium 1.1 mg/dL and potassium 2.6 mmol/L. Over the past month, she has experienced significant nausea and vomiting related to her recent surgery and adjuvant chemotherapy, though her appetite had begun to improve until a recurrence of symptoms shortly before presentation. She completed two chemotherapy cycles, with further treatment paused due to poor tolerance and severe gastrointestinal side effects. She had also recently been prescribed (metolazone, furosemide) for right leg edema prior to the DVT diagnosislikely the culprit for her electrolyte abnormalities and intravascular depletion. On admission, she was hemodynamically stable, mildly dehydrated, and reported several days of right lower extremity pain and swelling. Duplex ultrasound confirmed acute nonocclusive DVT involving the right femoral, popliteal, and posterior tibial veins, without evidence of contralateral thrombus. Labs showed persistent mild normocytic anemia (Hgb 10.5 ), mild hypoalbuminemia (3.1 ), and stable renal function (Cr 0.9 ). Electrolytes repletied during admission with labs now was initiated with IV magnesium 2 g and 80 mEq oral potassium chloride, with normalization on repeat BMP (K 3.8, Mg 1.9). She subsequently developed transient hypotension overnight, responsive to a 1 L. Patient reports that her Entresto and metoprolol were recently held on discharge from prior hospitalization due to hypotension. Will continue to hold Entresto and metoprolol and discontinue lasix/metolazone. Patient will follow up with PCP, Cardiology, and Surgery/Oncology. Given recent Whipple surgery, the patients surgeon Dr. Vazuqez was informed of DVT and approved anticoagulation with apixaban. After clinical stabilization, she expressed readiness for discharge. Discharge Note New Diagnosis: Hypokalemia/hypomagnesemia/DVT RLE New Medications: Eliquis - 10mg BID x 7 days then 5mg BID there after (HOld entresto/metoprolol until follow up with cardiology) Discontinue Lasix/metolazone Follow Up: PCP/Surgery/oncology/cardiology I spent 35 minutes [id number] with the patient on the day of discharge performing discharge exam, discussing hospital stay and discharge instructions with patient and caregivers, preparation of discharge records, prescriptions & referral forms and addressing any questions/concerns the patient had as documented above. - Vitals & Intake/Output Vital Signs: Vital Signs Temperature 98.6 F 02/27/25 07:06 Pulse Rate 75 02/27/25 07:06 Respiratory Rate 16 02/27/25 08:10 Blood Pressure 111/55 02/27/25 07:06 O2 Sat by Pulse Oximetry 93 L 02/27/25 07:06 Intake & Output: Intake & Output 02/24/25 02/25/25 02/26/25 02/27/25 11:59 11:59 11:59 11:59 Intake Total 357 1800 Output Total 200 Balance 357 1600 Weight 56 kg - Lab Result Diagrams: 02/27/25 04:47 02/27/25 04:47 Lab Results-Last 24 Hrs: Lab Results-Last 24 Hours 02/26/25 02/26/25 02/26/25 Range/Units 13:10 18:10 22:00 WBC (3.98-10.04) x10^3/uL RBC (3.93-5.22) x10^6/uL Hgb (11.2-15.7) g/dL Hct (34.1-44.9) % MCV (79.4-94.8) fL MCH (25.6-32.2) pg MCHC (32.2-35.5) g/dL RDW (11.7-14.4) % Plt Count (182-369) x10^3/uL MPV (9.4-12.3) fL Gran % (34.0-71.1) % Immature Gran % (Auto) (0.001-0.429) % Nucleat RBC Rel Count (0.00-0.2) % Eos # (Auto) (0.04-0.36) x10^3/uL Immature Gran # (Auto) (0.001-0.031) x10^3u/L Absolute Lymphs (auto) (1.18-3.74) x10^3/uL Absolute Monos (auto) (0.24-0.86) x10^3/uL Absolute Nucleated RBC (0.00-0.012) x10^3u/L Lymphocytes % (19.3-51.7) % Monocytes % (4.7-12.5) % Eosinophils % (0.7-5.8) % Basophils % (0.1-1.2) % Absolute Granulocytes (1.56-6.13) x10^3/uL Basophils # (0.01-0.08) x10^3/uL Sodium (135-145) mmol/L Potassium 3.2 L 3.8 4.0 (3.5-5.1) mmol/L Chloride (98-107) mmol/L Carbon Dioxide (22-30) mmol/L Anion Gap (5-15) MEQ/L BUN (7-17) mg/dL Creatinine (0.52-1.04) mg/dL Estimated GFR ML/MIN Glucose (74-106) mg/dL Calcium (8.4-10.2) mg/dL Magnesium (1.6-2.3) mg/dL Total Bilirubin (0.2-1.3) mg/dL AST (14-36) U/L ALT (0-35) U/L Alkaline Phosphatase (38-126) U/L Serum Total Protein (6.3-8.2) g/dL Albumin (3.5-5.0) g/dL 02/26/25 02/27/25 02/27/25 Range/Units 22:00 04:47 04:47 WBC 6.1 5.8 (3.98-10.04) x10^3/uL RBC 3.52 L 3.55 L (3.93-5.22) x10^6/uL Hgb 10.5 L 10.8 L (11.2-15.7) g/dL Hct 33.1 L 33.1 L (34.1-44.9) % MCV 94.0 93.2 (79.4-94.8) fL MCH 29.8 30.4 (25.6-32.2) pg MCHC 31.7 L 32.6 (32.2-35.5) g/dL RDW 14.7 H 14.9 H (11.7-14.4) % Plt Count 167 L 173 L (182-369) x10^3/uL MPV 9.7 9.4 (9.4-12.3) fL Gran % 74.4 H 71.0 (34.0-71.1) % Immature Gran % (Auto) 0.3 0.7 H (0.001-0.429) % Nucleat RBC Rel Count 0.0 0.0 (0.00-0.2) % Eos # (Auto) 0.20 0.44 H (0.04-0.36) x10^3/uL Immature Gran # (Auto) 0.02 0.04 H (0.001-0.031) x10^3u/L Absolute Lymphs (auto) 0.90 L 0.71 L (1.18-3.74) x10^3/uL Absolute Monos (auto) 0.43 0.45 (0.24-0.86) x10^3/uL Absolute Nucleated RBC 0.00 0.00 (0.00-0.012) x10^3u/L Lymphocytes % 14.7 L 12.3 L (19.3-51.7) % Monocytes % 7.0 7.8 (4.7-12.5) % Eosinophils % 3.3 7.7 H (0.7-5.8) % Basophils % 0.3 0.5 (0.1-1.2) % Absolute Granulocytes 4.56 4.08 (1.56-6.13) x10^3/uL Basophils # 0.02 0.03 (0.01-0.08) x10^3/uL Sodium (135-145) mmol/L Potassium (3.5-5.1) mmol/L Chloride (98-107) mmol/L Carbon Dioxide (22-30) mmol/L Anion Gap (5-15) MEQ/L BUN (7-17) mg/dL Creatinine (0.52-1.04) mg/dL Estimated GFR ML/MIN Glucose (74-106) mg/dL Calcium (8.4-10.2) mg/dL Magnesium 1.9 (1.6-2.3) mg/dL Total Bilirubin (0.2-1.3) mg/dL AST (14-36) U/L ALT (0-35) U/L Alkaline Phosphatase (38-126) U/L Serum Total Protein (6.3-8.2) g/dL Albumin (3.5-5.0) g/dL 02/27/25 Range/Units 04:47 WBC (3.98-10.04) x10^3/uL RBC (3.93-5.22) x10^6/uL Hgb (11.2-15.7) g/dL Hct (34.1-44.9) % MCV (79.4-94.8) fL MCH (25.6-32.2) pg MCHC (32.2-35.5) g/dL RDW (11.7-14.4) % Plt Count (182-369) x10^3/uL MPV (9.4-12.3) fL Gran % (34.0-71.1) % Immature Gran % (Auto) (0.001-0.429) % Nucleat RBC Rel Count (0.00-0.2) % Eos # (Auto) (0.04-0.36) x10^3/uL Immature Gran # (Auto) (0.001-0.031) x10^3u/L Absolute Lymphs (auto) (1.18-3.74) x10^3/uL Absolute Monos (auto) (0.24-0.86) x10^3/uL Absolute Nucleated RBC (0.00-0.012) x10^3u/L Lymphocytes % (19.3-51.7) % Monocytes % (4.7-12.5) % Eosinophils % (0.7-5.8) % Basophils % (0.1-1.2) % Absolute Granulocytes (1.56-6.13) x10^3/uL Basophils # (0.01-0.08) x10^3/uL Sodium 131 L (135-145) mmol/L Potassium 3.8 (3.5-5.1) mmol/L Chloride 109 H (98-107) mmol/L Carbon Dioxide 24 (22-30) mmol/L Anion Gap 2.6 L (5-15) MEQ/L BUN 12 (7-17) mg/dL Creatinine 0.90 (0.52-1.04) mg/dL Estimated GFR 65.8 ML/MIN Glucose 123 H (74-106) mg/dL Calcium 6.7 L (8.4-10.2) mg/dL Magnesium (1.6-2.3) mg/dL Total Bilirubin 0.40 (0.2-1.3) mg/dL AST 16 (14-36) U/L ALT 8 (0-35) U/L Alkaline Phosphatase 91 (38-126) U/L Serum Total Protein 4.0 L (6.3-8.2) g/dL Albumin 1.7 L (3.5-5.0) g/dL Micro Results-Entire Visit: Accuchecks Date 02/27/25 Date 02/26/25 Date 02/26/25 Date 02/26/25 Time 07:14 Time 22:00 Time 16:16 Time 11:29 - Radiology Exams Ordered Rad Exams-Entire Visit: Radiology Procedures Category Date Time Status ABDOMEN AND PELVIS W/0 CONTRAS [CT] Stat Exams 02/25/25 19:21 Completed VENOUS BILATERAL EXTREMITY [US] Urgent Exams 02/26/25 08:29 Completed - Procedures and Test Procedures and Tests throughout Hospitalization: Therapy Orders & Screens 02/26/25 08:31 PT Eval & Treat (MD Order) ONCE Reason for Eval:: weakness Diagnosis: Electrolyte abnormalities, generalized weakness OT Eval and Treat (MD Order) ONCE Comment: Physician Instructions: Reason For Exam: Diagnosis: Electrolyte abnormalities, generalized weakness 02/26/25 18:43 Incentive Spirometry UD Comment: Diagnosis: Electrolyte abnormalities, generalized weakness Discharge Exam General Appearance: no apparent distress, thin Neurologic Exam: alert, oriented x 3, cooperative Eye Exam: PERRL Ears, Nose, Throat Exam: normal ENT inspection Neck Exam: normal inspection Respiratory Exam: normal breath sounds, lungs clear Cardiovascular Exam: regular rate/rhythm, normal heart sounds Gastrointestinal/Abdomen Exam: soft, normal bowel sounds Pelvic Exam: deferred Rectal Exam: deferred Back Exam: normal inspection Extremity Exam: normal inspection Skin Exam: normal color Final Diagnosis/Problem List - Final Discharge Diagnosis/Problem (1) Hypomagnesemia Current Visit: Yes Status: Acute Assessment & Plan: Likely due to excessive GI losses and diuretic use in the setting of poor intake. Repleted with IV magnesium and potassium chloride; normalization achieved. Advised close outpatient BMP monitoring every 35 days initially, with additional repletion PRN. Instructed to report symptoms of weakness, palpitations, or recurrent nausea/vomiting. Code(s): E83.42 - HYPOMAGNESEMIA (2) Hypokalemia Current Visit: Yes Status: Acute Assessment & Plan: see above Code(s): E87.6 - HYPOKALEMIA (3) Acute deep vein thrombosis (DVT) Current Visit: Yes Status: Acute Assessment & Plan: Likely provoked by malignancy and post-surgical hypercoagulability. Initiated therapeutic enoxaparin inpatient; transitioning to apixaban 10 mg PO BID 7 days, then 5 mg BID indefinitely while malignancy remains active. Educated on signs of PE (dyspnea, chest pain, hemoptysis) and bleeding. Encouraged ambulation, leg elevation, and avoidance of prolonged immobility. Follow-up with hematology/oncology and PCP arranged. Case management verifying medication affordability. Dr. Vazquez notified and okay with anticoagulation Code(s): I82.409 - ACUTE EMBOLISM AND THOMBOS UNSP DEEP VN UNSP LOWER EXTREMITY (4) Pancreatic cancer Current Visit: Yes Status: Acute Assessment & Plan: Postoperative course complicated by malnutrition, chemotherapy intolerance, and electrolyte instability. Oncology follow-up to reassess chemotherapy candidacy. Annual surveillance for nutritional deficiencies: vitamins A, D, E, K, B12, folate, zinc, calcium, and iron per post-Whipple guidelines. Continued gradual dietary advancement and pancreatic enzyme replacement if steatorrhea develops. (5) Dehydration Current Visit: Yes Status: Acute Assessment & Plan: Related to decreased oral intake and diuretic use. Administered 1 L IV NS at 75 mL/hr with symptomatic improvement. Encouraged oral hydration and high-protein, small frequent meals. Code(s): E86.0 - DEHYDRATION (6) Malnutrition Current Visit: Yes Status: Acute Assessment & Plan: see above Code(s): E46 - UNSPECIFIED PROTEIN-CALORIE MALNUTRITION (7) CHF (congestive heart failure) Current Visit: Yes Status: Acute Assessment & Plan: BP instability likely due to hypovolemia and medication effect. Continue to hold Entresto and metoprolol until reevaluated by cardiology next week. Hold diuretics (furosemide, metolazone) given recent electrolyte derangements and DVT-related edema. Code(s): I50.9 - HEART FAILURE, UNSPECIFIED (8) Abdominal pain Current Visit: Yes Status: Acute Assessment & Plan: Resolved- tolerating diet CT abdomen/pelvis showed expected postoperative changes from Whipple, no abscess, leak, obstruction, or recurrent disease. Managed conservatively with IV fluids, antiemetics (ondansetron PRN), and advancement of diet as tolerated. Encouraged gradual return to regular meals and monitoring for recurrent pain, fever, or emesis. No acute surgical intervention indicated; resolved prior to discharge Code(s): R10.9 - UNSPECIFIED ABDOMINAL PAIN (9) Diabetes mellitus Current Visit: No Status: Chronic Assessment & Plan: Continue home regimen Follow-up: Hematology/oncology, cardiology, and PCP within one week. Hold Entresto, metoprolol, furosemide, metolazone pending cardiology reassessment. Code(s): E11.9 - TYPE 2 DIABETES MELLITUS WITHOUT COMPLICATIONS - Discharge Discharge Date: 02/27/25 Disposition: Home, Self-Care Condition: Stable Prescriptions: New Apixaban [Eliquis] See Rx Instructions .ROUTE .COMPLEX 30 Days #1 kit Continue Docusate Sodium 100 mg [Docusate Sodium 100 MG] 100 mg PO BID Vibegron [Gemtesa] 75 mg PO DAILY Finerenone [Kerendia] 20 mg PO DAILY PANTOPRAZOLE 40 mg Tablet [Protonix 40MG Tablet] 40 mg PO DAILY Ergocalciferol (Vitamin D2) [Vitamin D2] 50,000 unit PO Q7D Hydrocodone/Acetaminophen [Hydrocodone-Acetamin 5-325 mg] 1 tab PO Q6HPRN PRN MDD 4 PRN Reason: Pain Hydroxyzine HCl 25 mg [Atarax 25 mg] 25 mg PO TID PRN PRN Reason: Itching Insulin Lispro [Humalog] 4 units SQ TIDAC Loratadine 10 mg [Claritin 10 mg] 10 mg PO DAILY Magnesium Chloride [Magnesium] 64 mg PO DAILY Montelukast Sodium 10 mg [Singulair 10 MG] 10 mg PO DAILY Omeprazole 20 mg PO DAILY ondansetron HCL [Ondansetron HCl] 4 mg PO Q8H PRN PRN Reason: Nausea Polyethylene Glycol 3350 17 gm [Miralax Powder 17GM PACKET] 17 gm PO DAILY PRN PRN Reason: Constipation Potassium Chloride 10 meq PO DAILY Rosuvastatin Calcium 40 mg PO DAILY Discontinued Sacubitril/Valsartan [Entresto 24 mg-26 mg Tablet] 1 each PO BID Furosemide 20 mg [Lasix 20 mg] 40 mg PO DAILY Metolazone 2.5 mg [Zaroxolyn 2.5 MG] 2.5 mg PO DAILY Metoprolol Tartrate 25 mg [Lopressor 25MG Tab] 25 mg PO DAILY Follow up with: PATRIC CEBALLOS MD [Primary Care Provider, [facility]] - 03/05/25 1:40 pm SCOTT URIARTE PA [NON-STAFF PHY W/O PRIVILEGES, UNKNOWN] - 03/04/25 2:00 pm Referral Note: WILL SEE PATIENT FOR TATIANNA GUY
[2025-03-06] MEDS ORDERED: ELIQUIS 2.5 MG TABLET PO SCH (10:00)
== END 2025-02-27 11:55 | disposition home health service (06) ==
LOC: ED 18:29 → MED SURG 23:01
PROVIDERS: ADMIT Internal Medicine; ATTEND Internal Medicine
DX: E83.42 Hypomagnesemia (principal); E87.6 Hypokalemia; E78.5 Hyperlipidemia, unspecified; E11.9 Type 2 diabetes mellitus without complications; E03.9 Hypothyroidism, unspecified; Z79.899 Other long term (current) drug therapy; R60.0 Localized edema; E86.0 Dehydration; M79.661 Pain in right lower leg; I82.401 Acute embolism and thrombosis of unspecified deep veins of right lower extremity; C25.9 Malignant neoplasm of pancreas, unspecified; E46 Unspecified protein-calorie malnutrition; I11.0 Hypertensive heart disease with heart failure; I50.9 Heart failure, unspecified; R10.9 Unspecified abdominal pain
CPT/HCPCS: 36415; 74176; 80053; 81001; 83735; 84100; 84132; 84484; 85025; 93005; 93041; 93970; 94760; 96365; 96366; 97162; 99285; Q3014

== ENCOUNTER 2025-03-13 12:54 | Emergency (ER) | payer MEDICARE ==
--- NOTE | 2025-03-13 13:00 | ERPHSYRPT ---
- History of Present Illness Time Seen by Provider: 03/13/25 13:00 Source: patient, family Exam Limitations: no limitations Physician History: This is a 79-year-old white female patient who arrives by private vehicle and is a patient of Dr. Mcleod whom she has an appointment with on 03/17/2025 with the concern of bilateral lower extremity leg swelling right greater than left with clear fluid discharge from skin of the right lower leg. Patient denies chest pain. Patient denies shortness of breath. In December 2024 patient underwent a Whipple surgery. Approximately 1 month later she was diagnosed with a right lower extremity nonoccluding DVT. Ultimately she was placed on Eliquis. She was told to stop her diuretics secondary to significant loss of potassium. She is currently on potassium supplementation. However in the last several days she has had increasing swelling in both her lower extremities but the right side worse than the left. Patient has hyperlipidemia, diabetes and osteoarthritis. Method of Injury: other Severity of Pain-Max: none Severity of Pain-Current: none Associated Symptoms: none Allergies/Adverse Reactions: No Known Drug Allergies Allergy (Verified 02/25/25 18:50) Home Medications: Docusate Sodium 100 mg [Docusate Sodium 100 MG] 100 mg PO BID 02/06/19 [History] Finerenone [Kerendia] 20 mg PO DAILY 10/03/24 [History] Vibegron [Gemtesa] 75 mg PO DAILY 10/03/24 [History] PANTOPRAZOLE 40 mg Tablet [Protonix 40MG Tablet] 40 mg PO DAILY 10/26/24 [History] Ergocalciferol (Vitamin D2) [Vitamin D2] 50,000 unit PO Q7D 02/25/25 [History] Hydrocodone/Acetaminophen [Hydrocodone-Acetamin 5-325 mg] 1 tab PO Q6HPRN PRN MDD 4 02/25/25 [History] Insulin Lispro [Humalog] 4 units SQ TIDAC 02/25/25 [History] Loratadine 10 mg [Claritin 10 mg] 10 mg PO DAILY 02/25/25 [History] Magnesium Chloride [Magnesium] 64 mg PO DAILY 02/25/25 [History] Montelukast Sodium 10 mg [Singulair 10 MG] 10 mg PO DAILY 02/25/25 [History] Omeprazole 20 mg PO DAILY 02/25/25 [History] Polyethylene Glycol 3350 17 gm [Miralax Powder 17GM PACKET] 17 gm PO DAILY PRN 02/25/25 [History] Potassium Chloride 10 meq PO BID 02/25/25 [History] Rosuvastatin Calcium 40 mg PO DAILY 02/25/25 [History] ondansetron HCL [Ondansetron HCl] 4 mg PO Q8H PRN 02/25/25 [History] Hx Tetanus, Diphtheria Vaccination/Date Given: No (unknown) Hx Influenza Vaccination/Date Given: Yes Hx Pneumococcal Vaccination/Date Given: Yes Travel Risk - International Travel Have you traveled outside of the country in past 3 weeks: No - Emerging Infectious Disease Are you exhibiting symptoms associated with any current EIDs: No Symptoms: Diarrhea, Vomitting Comment: low blood sugar related symptoms - Review of Systems Constitutional: No Symptoms Eyes: No Symptoms Ears, Nose, & Throat: No Symptoms Respiratory: No Symptoms Cardiac: No Symptoms Abdominal/Gastrointestinal: No Symptoms Genitourinary Symptoms: No Symptoms Musculoskeletal: No Symptoms Skin: Other (Bilateral lower extremity below the knee swelling right worse than left. Clear fluid right lower extremity) Neurological: No Symptoms Psychological: No Symptoms Endocrine: No Symptoms Hematologic/Lymphatic: No Symptoms Immunological/Allergic: No Symptoms All Other Systems: Reviewed and Negative - Past Medical History Pertinent Past Medical History: Yes Neurological History: No Pertinent History ENT History: No Pertinent History Cardiac History: High Cholesterol Respiratory History: No Pertinent History Endocrine Medical History: Diabetes Type II Musculoskeletal History: Osteoarthritis GI Medical History: No Pertinent History, Other History: No Pertinent History Psycho-Social History: No Pertinent History Female Reproductive Disorders: No Pertinent History - Past Surgical History Past Surgical History: Yes Neuro Surgical History: No Pertinent History Cardiac: Angioplasty Respiratory: No Pertinent History Gastrointestinal: Cholecystectomy, Other Genitourinary: No Pertinent History Musculoskeletal: Joint Replacement Female Surgical History: Hysterectomy Other Surgical History: Left total knee replacement, arthroscopy, pancreatic cancer, stent in bile duct. whipple 5 weeks ago - Social History Smoking Status: Never smoker Exposure to second hand smoke: Yes Drug Use: none - Social Determinants of Health Will the patient participate in the screening: Yes Do you worry about a steady place to live?: No In the past 12 months,have you had to go without utilities?: No Transportation Issues: No Has anyone in your support network made you feel unsafe?: No Have you or anyone in your house had to go w/o enough food: No - Nursing Vital Signs Nursing Vital Signs: Initial Vital Signs Temperature 97.3 F 03/13/25 13:00 Pulse Rate 71 03/13/25 13:00 Respiratory Rate 18 03/13/25 13:00 Blood Pressure 145/54 03/13/25 13:00 O2 Sat by Pulse Oximetry 100 03/13/25 13:00 Pain Scale Pain Intensity 4 - Physical Exam General Appearance: no apparent distress, alert, anxiety Eyes, Ears, Nose, Throat Exam: normal ENT inspection, moist mucous membranes Neck Exam: normal inspection, non-tender, supple, full range of motion Cardiovascular/Respiratory Exam: chest non-tender, no respiratory distress Gastrointestinal/Abdominal Exam: non-tender Back Exam: normal inspection, normal range of motion, No CVA tenderness Hips Exam: bilateral: non-tender, normal inspection, normal range of motion, no evidence of injury Legs Exam: bilateral leg: non-tender, normal range of motion, no evidence of injury, swelling (Bilateral, below the knee swelling right greater than left. Lymphedema right lower extremity below the knee) Knees Exam: bilateral knee: non-tender, normal inspection, normal range of motion, no evidence of injury Ankle Exam: right ankle: other (Right side with lymph fluid present), bilateral ankle: non-tender, normal range of motion, no evidence of injury, swelling Foot Exam: bilateral foot: non-tender, normal range of motion, no evidence of injury, swelling Neuro/Tendon Exam: normal sensation, normal motor functions, normal tendon functions, responds to pain, no evidence tendon injury Mental Status Exam: alert, oriented x 3, cooperative Skin Exam: other (No evidence of cellulitis bilateral lower extremity) SpO2 Interpretation: normal O2 Delivery: Room Air - Course Nursing assessment & vital signs reviewed: Yes Ordered Tests: Active Orders 24 hr Category Date Time Status [place] STAT Care 03/13/25 13:49 Active IV Insertion STAT Care 03/13/25 13:49 Active Pulse Oximetry (ED) STAT Care 03/13/25 13:49 Active VENOUS BILATERAL EXTREMITY [US] Stat Exams 03/13/25 13:50 Taken CBC W DIFF Stat Lab 03/13/25 13:20 Completed CMP Stat Lab 03/13/25 13:20 Completed MAGNESIUM Stat Lab 03/13/25 13:20 Completed NT PRO BNPII Stat Lab 03/13/25 13:20 Completed PROTIME WITH INR Stat Lab 03/13/25 13:20 Completed Lab/Rad Data: Laboratory Result Diagrams 03/13/25 13:20 03/13/25 13:20 Laboratory Results 03/13/25 03/13/25 03/13/25 Range/Units 13:20 13:20 13:20 WBC 5.9 (3.98-10.04) x10^3/uL RBC 3.66 L (3.93-5.22) x10^6/uL Hgb 11.0 L (11.2-15.7) g/dL Hct 34.7 (34.1-44.9) % MCV 94.8 (79.4-94.8) fL MCH 30.1 (25.6-32.2) pg MCHC 31.7 L (32.2-35.5) g/dL RDW 15.3 H (11.7-14.4) % Plt Count 277 (182-369) x10^3/uL MPV 9.2 L (9.4-12.3) fL Gran % 59.2 (34.0-71.1) % Immature Gran % (Auto) 0.2 (0.001-0.429) % Nucleat RBC Rel Count 0.0 (0.00-0.2) % Eos # (Auto) 0.15 (0.04-0.36) x10^3/uL Immature Gran # (Auto) 0.01 (0.001-0.031) x10^3u/L Absolute Lymphs (auto) 1.72 (1.18-3.74) x10^3/uL Absolute Monos (auto) 0.47 (0.24-0.86) x10^3/uL Absolute Nucleated RBC 0.00 (0.00-0.012) x10^3u/L Lymphocytes % 29.1 (19.3-51.7) % Monocytes % 8.0 (4.7-12.5) % Eosinophils % 2.5 (0.7-5.8) % Basophils % 1.0 (0.1-1.2) % Absolute Granulocytes 3.50 (1.56-6.13) x10^3/uL Basophils # 0.06 (0.01-0.08) x10^3/uL PT 13.7 H (9.4-12.5) SECONDS INR 1.23 (0.8-3.0) Sodium 132 L (135-145) mmol/L Potassium 3.6 (3.5-5.1) mmol/L Chloride 108 H (98-107) mmol/L Carbon Dioxide 23 (22-30) mmol/L Anion Gap 4.7 L (5-15) MEQ/L BUN 3 L (7-17) mg/dL Creatinine 0.61 (0.52-1.04) mg/dL Estimated GFR 92.0 ML/MIN Glucose 84 (74-106) mg/dL Calcium 7.0 L (8.4-10.2) mg/dL Magnesium 1.7 (1.6-2.3) mg/dL Total Bilirubin 0.20 (0.2-1.3) mg/dL AST 33 (14-36) U/L ALT 14 (0-35) U/L Alkaline Phosphatase 93 (38-126) U/L NT-Pro-B Natriuret Pep 361 (<300) pg/mL Serum Total Protein 4.6 L (6.3-8.2) g/dL Albumin 1.8 L (3.5-5.0) g/dL - Progress Progress: unchanged Progress Note: 03/13/25 15:11 My medical decision making and the assignment of moderate complexity of this patient's medical issue today is based on review of the patient's past medical history, review the patient's medication list, reviewed patient drug allergy list, history present illness and physical findings on examination. The workup in this patient includes placement of intravenous line, CBC, CMP, BNP, magnesium level and bilateral lower extremity venous Dopplers. Differential diagnosis includes but is not limited to lymphedema, cellulitis, occluding DVT bilateral lower extremity, nonoccluding DVT bilateral lower extremity. I interpreted the patient's laboratory data results. Based on the laboratory data results there is evidence of hypoalbuminemia. This could contribute to the patient's lymphedema. There are no other acute, emergent medical issues. The sonar watchstander/technologist provided me with the preliminary report of the patient's bilateral lower extremity venous Dopplers. The left side continues to have no DVT present. There continues to be right lower extremity nonoccluding DVTs present. However, there is improvement compared to the prior bilateral lower extremity venous Doppler. 03/13/25 15:14 Counseled pt/family regarding: lab results, diagnosis, need for follow-up, rad results Medical Desision Making - Independent Historian Additional History obtained from: Family - Diagnostic Testing Diagnostic test were ordered, analyzed, and reviewed by me: Yes Radiological Interpretation: Other (Discussed with geospatial information technologist) - Risk of complications Low Risk: Low risk of morbidity from additional dx testing or treatment - Departure Departure Disposition: Home Clinical Impression: Lymphedema, Hypoalbuminemia Condition: Stable Critical Care Time: No Referrals: PATRIC MCLEOD MD [Primary Care Provider, [facility]] - Follow up/PCP as directed Additional Instructions: Continue your medications as prescribed. Keep your appointment with Dr. Mcleod dated 03/17/2025. Discuss with him the use of compression stockings and IV supplemental albumin to help draw fluid back into the intravascular space. Keep your legs elevated above the level of your heart when not up and ambulating. Wear the karrie wraps to help with compression.
[2025-03-13 13:07] VITALS: TEMP 97.3
[2025-03-13 14:02] LABS: BASOPHIL % 1.0 % (0.1-1.2); Basophil (Absolute #) 0.06 x10^3/uL (0.01-0.08); Eosinophil (Absolute #) 0.15 x10^3/uL (0.04-0.36); Hematocrit 34.7 % (34.1-44.9); Hemoglobin 11.0 g/dL (11.2-15.7); IMMATURE GRAN # 0.01 x10^3u/L (0.001-0.031); IMMATURE GRAN % 0.2 % (0.001-0.429); Lymphocyte (Absolute #) 1.72 x10^3/uL (1.18-3.74); Mean Corpuscular Hemoglobin 30.1 pg (25.6-32.2); Mean Corpuscular Hgb Concent. 31.7 g/dL (32.2-35.5); Monocyte (Absolute #) 0.47 x10^3/uL (0.24-0.86); NUCLEATED RBC # 0.00 x10^3u/L (0.00-0.012); NUCLEATED RBC % 0.0 % (0.00-0.2); Platelet Count 277 x10^3/uL (182-369); Red Blood Count 3.66 x10^6/uL (3.93-5.22); White Blood Count 5.9 x10^3/uL (3.98-10.04)
[2025-03-13 14:08] LABS: INR 1.23 (0.8-3.0); PROTIME 13.7 SECONDS (9.4-12.5)
[2025-03-13 14:17] LABS: Calcium 7.0 mg/dL (8.4-10.2); Carbon Dioxide 23.0 mmol/L (22-30); Creatinine 1 0.61 mg/dL (0.52-1.04); EST GLOMERULAR FILTRATION RATE 92.0 ML/MIN; Glucose 84.0 mg/dL (74-106); NT PRO BNPII 361.0 pg/mL (<300); Potassium 3.6 mmol/L (3.5-5.1); SGOT/AST 33.0 U/L (14-36); SGPT/ALT 14.0 U/L (0-35); Total Protein 4.6 g/dL (6.3-8.2)
[2025-03-13 15:04] VITALS: RESP 18
[2025-03-13 16:09] VITALS: BP 131/51; PULSE 88; O2SAT 18
--- NOTE | 2025-03-13 16:15 | XRAY ---
Indication: Bilateral leg swelling. History right leg DVT. Two-dimensional sonogram and color Doppler imaging major venous vessels left and right leg performed. Comparison: February 26, 2025 Right leg improved with clearing previous nonoccluding thrombi in femoral, popliteal, and posterior tibial veins. There remains tiny residual nonoccluding thrombi in the popliteal vein. No thrombus in the other examined deep venous vessels left and right leg including greater saphenous . Patent veins demonstrate normal compressibility and normal venous waveforms. Impression: Right leg DVTs improved with tiny residual nonoccluding thrombi in popliteal vein. Left leg again negative for DVT.
== END 2025-03-13 16:15 | disposition home or self-care (01) ==
LOC: ED 12:54
DX: I89.0 Lymphedema, not elsewhere classified (principal); E88.09 Other disorders of plasma-protein metabolism, not elsewhere classified; E11.9 Type 2 diabetes mellitus without complications; Z79.4 Long term (current) use of insulin; Z79.899 Other long term (current) drug therapy

== ENCOUNTER 2025-03-19 15:08 | Emergency (ER) | payer MEDICARE ==
--- NOTE | 2025-03-19 15:17 | ERPHSYRPT ---
- History of Present Illness Time Seen by Provider: 03/19/25 15:17 Source: patient, family Exam Limitations: no limitations Physician History: This is a 79-year-old white female patient who has a history of bilateral lower extremity lymphedema, right lower extremity DVT status post Whipple procedure for pancreatic cancer. She presents to the emergency department today after attempting to step up on a curb while walking and lost her balance falling and hitting her left elbow and forehead. She did not lose consciousness. Patient has been diagnosed with low albumin levels, bilateral lower extremity lymphedema, asthma, insulin-dependent diabetes, lipids that are elevated and gastroesophageal reflux disease. The patient has history of insulin-dependent diabetes. Patient has chronic issues with low potassium. She denies headache and she denies visual changes. She denies chest pain and she denies shortness of breath. patient is not dizzy Timing/Duration: today Severity: mild Associated Symptoms: denies symptoms Allergies/Adverse Reactions: No Known Drug Allergies Allergy (Verified 03/19/25 15:22) Home Medications: Docusate Sodium 100 mg [Docusate Sodium 100 MG] 100 mg PO BID 02/06/19 [History] Finerenone [Kerendia] 20 mg PO DAILY 10/03/24 [History] Vibegron [Gemtesa] 75 mg PO DAILY 10/03/24 [History] PANTOPRAZOLE 40 mg Tablet [Protonix 40MG Tablet] 40 mg PO DAILY 10/26/24 [History] Ergocalciferol (Vitamin D2) [Vitamin D2] 50,000 unit PO Q7D 02/25/25 [History] Hydrocodone/Acetaminophen [Hydrocodone-Acetamin 5-325 mg] 1 tab PO Q6HPRN PRN MDD 4 02/25/25 [History] Insulin Lispro [Humalog] 4 units SQ TIDAC 02/25/25 [History] Loratadine 10 mg [Claritin 10 mg] 10 mg PO DAILY 02/25/25 [History] Magnesium Chloride [Magnesium] 64 mg PO DAILY 02/25/25 [History] Montelukast Sodium 10 mg [Singulair 10 MG] 10 mg PO DAILY 02/25/25 [History] Omeprazole 20 mg PO DAILY 02/25/25 [History] Polyethylene Glycol 3350 17 gm [Miralax Powder 17GM PACKET] 17 gm PO DAILY PRN 02/25/25 [History] Potassium Chloride 10 meq PO BID 02/25/25 [History] Rosuvastatin Calcium 40 mg PO DAILY 02/25/25 [History] ondansetron HCL [Ondansetron HCl] 4 mg PO Q8H PRN 02/25/25 [History] Hx Tetanus, Diphtheria Vaccination/Date Given: No (unknown) Hx Influenza Vaccination/Date Given: Yes Hx Pneumococcal Vaccination/Date Given: Yes Travel Risk - International Travel Have you traveled outside of the country in past 3 weeks: No - Emerging Infectious Disease Are you exhibiting symptoms associated with any current EIDs: No Symptoms: Diarrhea, Vomitting Comment: low blood sugar related symptoms - Review of Systems Constitutional: No Symptoms Eyes: No Symptoms Ears, Nose, & Throat: No Symptoms Respiratory: No Symptoms Cardiac: Orthopnea Abdominal/Gastrointestinal: No Symptoms Genitourinary Symptoms: No Symptoms Musculoskeletal: Other (Bilateral lower extremity lymphedema. Skin tear left elbow) Skin: Other (Bilateral lower extremity lymphedema) Neurological: No Symptoms Psychological: No Symptoms Endocrine: No Symptoms Hematologic/Lymphatic: No Symptoms Immunological/Allergic: No Symptoms All Other Systems: Reviewed and Negative - Past Medical History Pertinent Past Medical History: Yes Neurological History: No Pertinent History ENT History: No Pertinent History Cardiac History: High Cholesterol Respiratory History: No Pertinent History Endocrine Medical History: Diabetes Type II Musculoskeletal History: Osteoarthritis GI Medical History: No Pertinent History, Other History: No Pertinent History Psycho-Social History: No Pertinent History Female Reproductive Disorders: No Pertinent History Other Medical History: HX OF BILATERAL KNEE REPLACEMENT - LEFT 02/15, RIGHT 06/19. pancreatic cancer. hysterectomy - Past Surgical History Past Surgical History: Yes Neuro Surgical History: No Pertinent History Cardiac: Angioplasty Respiratory: No Pertinent History Gastrointestinal: Cholecystectomy, Other Genitourinary: No Pertinent History Musculoskeletal: Joint Replacement Female Surgical History: Hysterectomy Other Surgical History: Left total knee replacement, arthroscopy, pancreatic cancer, stent in bile duct. whipple 5 weeks ago. hysterectomy - Social History Smoking Status: Never smoker Exposure to second hand smoke: Yes Drug Use: none - Social Determinants of Health Will the patient participate in the screening: Yes Do you worry about a steady place to live?: No In the past 12 months,have you had to go without utilities?: No Transportation Issues: No Has anyone in your support network made you feel unsafe?: No Have you or anyone in your house had to go w/o enough food: No - Nursing Vital Signs Nursing Vital Signs: Initial Vital Signs Temperature 97.2 F 03/19/25 15:10 Pulse Rate 56 L 03/19/25 15:10 Respiratory Rate 16 03/19/25 15:10 Blood Pressure 143/50 03/19/25 15:10 O2 Sat by Pulse Oximetry 99 03/19/25 15:10 Pain Scale Pain Intensity 7 - Physical Exam General Appearance: no apparent distress, alert, anxiety Eye Exam: PERRL/EOMI, eyes nml inspection Ears, Nose, Throat Exam: normal ENT inspection, moist mucous membranes Neck Exam: normal inspection, non-tender, supple, full range of motion Respiratory Exam: normal breath sounds, lungs clear, airway intact, No chest tenderness, No respiratory distress Cardiovascular Exam: regular rate/rhythm, normal heart sounds, normal peripheral pulses Gastrointestinal/Abdomen Exam: soft, normal bowel sounds, No tenderness Pelvic Exam: not done Extremity Exam: normal range of motion, pelvis stable, other (Skin tear overlying left elbow. No active bleeding. Bilateral lower extremity lymphedema. Right side worse than left. No evidence of cellulitis) Neurologic Exam: alert, oriented x 3, cooperative, product safety associate II-XII nml as tested, sensation nml Skin Exam: other (See above) Lymphatic Exam: No adenopathy SpO2 Interpretation: normal O2 Delivery: Room Air - Course Nursing assessment & vital signs reviewed: Yes Ordered Tests: Active Orders 24 hr Category Date Time Status ELBOW (MINIMUM 3 VIEWS) Stat Exams 03/19/25 15:51 Completed HEAD WITHOUT CONTRAST [CT] Stat Exams 03/19/25 15:51 Completed CBC W DIFF Stat Lab 03/19/25 16:50 Completed CMP Stat Lab 03/19/25 16:50 Completed Lab/Rad Data: Laboratory Result Diagrams 03/19/25 16:50 03/19/25 16:50 Laboratory Results 03/19/25 03/19/25 Range/Units 16:50 16:50 WBC 3.8 L (3.98-10.04) x10^3/uL RBC 3.74 L (3.93-5.22) x10^6/uL Hgb 11.3 (11.2-15.7) g/dL Hct 35.6 (34.1-44.9) % MCV 95.2 H (79.4-94.8) fL MCH 30.2 (25.6-32.2) pg MCHC 31.7 L (32.2-35.5) g/dL RDW 15.9 H (11.7-14.4) % Plt Count 178 L (182-369) x10^3/uL MPV 9.9 (9.4-12.3) fL Gran % 55.2 (34.0-71.1) % Immature Gran % (Auto) 0.3 (0.001-0.429) % Nucleat RBC Rel Count 0.0 (0.00-0.2) % Eos # (Auto) 0.09 (0.04-0.36) x10^3/uL Immature Gran # (Auto) 0.01 (0.001-0.031) x10^3u/L Absolute Lymphs (auto) 1.32 (1.18-3.74) x10^3/uL Absolute Monos (auto) 0.23 L (0.24-0.86) x10^3/uL Absolute Nucleated RBC 0.00 (0.00-0.012) x10^3u/L Lymphocytes % 35.2 (19.3-51.7) % Monocytes % 6.1 (4.7-12.5) % Eosinophils % 2.4 (0.7-5.8) % Basophils % 0.8 (0.1-1.2) % Absolute Granulocytes 2.07 (1.56-6.13) x10^3/uL Basophils # 0.03 (0.01-0.08) x10^3/uL Sodium 136 (135-145) mmol/L Potassium 3.8 (3.5-5.1) mmol/L Chloride 107 (98-107) mmol/L Carbon Dioxide 24 (22-30) mmol/L Anion Gap 9.2 (5-15) MEQ/L BUN 3 L (7-17) mg/dL Creatinine 0.72 (0.52-1.04) mg/dL Estimated GFR 86.1 ML/MIN Glucose 150 H (74-106) mg/dL Calcium 7.3 L (8.4-10.2) mg/dL Total Bilirubin 0.50 (0.2-1.3) mg/dL AST 37 H (14-36) U/L ALT 14 (0-35) U/L Alkaline Phosphatase 97 (38-126) U/L Serum Total Protein 5.0 L (6.3-8.2) g/dL Albumin 2.3 L (3.5-5.0) g/dL - Progress Progress: unchanged Progress Note: 03/19/25 16:20 My medical decision making and assignment of moderate complexity of this patient's medical issue today is based on review of the patient's past medical history, review the patient's medication list, review the patient drug allergy list, history presents and physical findings on examination. The workup in this patient includes CT scan of the head without contrast and x-ray of the left elbow. In addition we will draw a CBC and a CMP to check the patient's liver function test and albumin levels. Differential diagnosis includes was not limited to worsening lymphedema, cellulitis, hypoalbuminemia, acute intracranial abnormality, left elbow fracture/dislocation, skin tear overlying left elbow 03/19/25 17:40 I interpreted the patient's laboratory data results. Based on laboratory data results, there are no acute, emergent medical issues. Her albumin level has increased from 1.96 days ago to 2.3 today. The following radiographic studies were interpreted by the radiologist and I reviewed the impression. The impressions are: Left elbow x-ray shows no acute bony, articular or soft tissue abnormalities. Head CT without contrast shows stable nonacute senile brain. Counseled pt/family regarding: lab results, diagnosis, need for follow-up, rad results Medical Desision Making - Independent Historian Additional History obtained from: Family - Diagnostic Testing Diagnostic test were ordered, analyzed, and reviewed by me: Yes Radiological Interpretation: Reviewed by me, Teleradiologist Report - Risk of complications Low Risk: Low risk of morbidity from additional dx testing or treatment - Departure Departure Disposition: Home Clinical Impression: Fall with no significant injury, Skin tear of left elbow without complication Condition: Stable Critical Care Time: No Referrals: PATRIC CEBALLOS MD [Primary Care Provider, [facility]] - Follow up/PCP as directed Additional Instructions: Follow the instructions given to you by the nurse for skin tear management at home. Continue all your medications as prescribed. Call your primary care provider tomorrow, 03/20/2025 to make arrangements for follow-up appointment to be seen to be referred to a lymphedema specialist if indicated.
[2025-03-19 15:34] VITALS: RESP 16; TEMP 97.2
--- NOTE | 2025-03-19 16:52 | XRAY ---
Indication: Fall injury. Blood thinner therapy. Multiple contiguous axial images obtained through the head without contrast. Comparison: October 27, 2024 Again age-appropriate global atrophy and minimal periventricular degenerative microischemia bilaterally. No acute intracranial hemorrhage, abnormal extra-axial fluid collection, or mass effect. 4th ventricle is midline without hydrocephalus. Bony calvarium intact. Visualized paranasal sinuses and mastoid air cells are clear. Impression: Stable nonacute senile brain.
--- NOTE | 2025-03-19 16:53 | XRAY ---
Indication: Pain following fall. Comparison: None 3 view left elbow demonstrates osteopenia and tiny medial epicondyle heterotopic ossification. No acute bony, articular, or soft tissue abnormalities.
[2025-03-19 17:14] LABS: BASOPHIL % 0.8 % (0.1-1.2); Basophil (Absolute #) 0.03 x10^3/uL (0.01-0.08); Eosinophil (Absolute #) 0.09 x10^3/uL (0.04-0.36); Hematocrit 35.6 % (34.1-44.9); Hemoglobin 11.3 g/dL (11.2-15.7); IMMATURE GRAN # 0.01 x10^3u/L (0.001-0.031); IMMATURE GRAN % 0.3 % (0.001-0.429); Lymphocyte (Absolute #) 1.32 x10^3/uL (1.18-3.74); Mean Corpuscular Hemoglobin 30.2 pg (25.6-32.2); Mean Corpuscular Hgb Concent. 31.7 g/dL (32.2-35.5); Monocyte (Absolute #) 0.23 x10^3/uL (0.24-0.86); NUCLEATED RBC # 0.00 x10^3u/L (0.00-0.012); NUCLEATED RBC % 0.0 % (0.00-0.2); Platelet Count 178 x10^3/uL (182-369); Red Blood Count 3.74 x10^6/uL (3.93-5.22); White Blood Count 3.8 x10^3/uL (3.98-10.04)
[2025-03-19 17:30] LABS: Calcium 7.3 mg/dL (8.4-10.2); Carbon Dioxide 24.0 mmol/L (22-30); Creatinine 1 0.72 mg/dL (0.52-1.04); EST GLOMERULAR FILTRATION RATE 86.1 ML/MIN; Glucose 150.0 mg/dL (74-106); Potassium 3.8 mmol/L (3.5-5.1); SGOT/AST 37.0 U/L (14-36); SGPT/ALT 14.0 U/L (0-35); Total Protein 5.0 g/dL (6.3-8.2)
[2025-03-19] MEDS: NORCO 5/325 MG PO ONE (17:56)
[2025-03-19] MEDS ORDERED: NORCO 5/325 MG ONE (17:56)
[2025-03-19 18:08] VITALS: BP 139/69; PULSE 74; O2SAT 99
--- NOTE | 2025-03-20 10:35 | XRAY ---
Indication: Fall. Comparison: None 2 view left femur demonstrates osteopenia, tiny spurring greater trochanter, and intact total knee arthroplasty. No other bony, articular, or soft tissue abnormalities.
== END 2025-03-19 18:10 | disposition home or self-care (01) ==
LOC: ED 15:08
DX: S51.012A Laceration without foreign body of left elbow, initial encounter (principal); W10.1XXA Fall (on)(from) sidewalk curb, initial encounter; E11.9 Type 2 diabetes mellitus without complications; Z79.4 Long term (current) use of insulin; Z79.899 Other long term (current) drug therapy